=== PATIENT | female | born 1950 | race Caucasian/White ===

== ENCOUNTER 2021-07-28 07:35 | Emergency (ER) | payer MEDICARE ==
[2021-07-28] MEDS ORDERED: LOPRESSOR 5 MG/5 ML INJECTION IV ONE ×2 (07:58→08:04)
--- NOTE | 2021-07-28 07:58 | ERPHSYRPT ---
- History of Present Illness Time Seen by Provider: 07/28/21 07:54 Source: patient Exam Limitations: no limitations Physician History: This is a 71-year-old white female patient seen by nurse practitioner Cynthia Stanford within the last week. Patient had a complaint of 2 to 3 weeks of intermittent low back pain. Patient has some chronic back pain issues. Patient was placed on lisinopril by Cynthia Stanford. Patient's back pain issue was not addressed at that time. Patient has a history of hypertension, [id number] diabetes and elevated cholesterol. She presents emergency department today with a complaint of back pain. However, the patient was found to be tachycardic and had a systolic blood pressure of over 200 mmHg. She has no chest pain she is not short of breath. She has no known history of coronary artery disease Timing/Duration: intermittent Severity: mild (To moderate back pain) Associated Symptoms: No shortness of breath, No chest pain Allergies/Adverse Reactions: No Known Drug Allergies Allergy (Verified 07/28/21 07:42) Home Medications: Atorvastatin Calcium 1 tab PO DAILY 07/28/21 [History] Lisinopril 20 mg [Zestril 20 MG] 1 tab PO DAILY 07/28/21 [History] Metformin HCl 500 mg [Glucophage 500 MG] 1 tab PO BID 07/28/21 [History] Hx Tetanus, Diphtheria Vaccination/Date Given: No Hx Influenza Vaccination/Date Given: No Hx Pneumococcal Vaccination/Date Given: No Travel Risk - International Travel Have you traveled outside of the country in past 3 weeks: No - Coronavirus Screening Are you exhibiting any of the following symptoms?: No Close contact with a COVID-19 positive Pt in past 14-21 Days: No - Review of Systems Constitutional: No Symptoms Eyes: No Symptoms Ears, Nose, & Throat: No Symptoms Respiratory: No Symptoms Cardiac: No Symptoms Abdominal/Gastrointestinal: No Symptoms Genitourinary Symptoms: No Symptoms Musculoskeletal: Back Pain Skin: No Symptoms Neurological: No Symptoms Psychological: No Symptoms Endocrine: No Symptoms Hematologic/Lymphatic: No Symptoms Immunological/Allergic: No Symptoms All Other Systems: Reviewed and Negative - Past Medical History Pertinent Past Medical History: Yes Neurological History: No Pertinent History ENT History: No Pertinent History Cardiac History: Hypertension Respiratory History: No Pertinent History Endocrine Medical History: No Pertinent History Musculoskeletal History: No Pertinent History GI Medical History: No Pertinent History History: No Pertinent History Psycho-Social History: No Pertinent History Female Reproductive Disorders: No Pertinent History - Past Surgical History Past Surgical History: No Neuro Surgical History: No Pertinent History Cardiac: No Pertinent History Respiratory: No Pertinent History Gastrointestinal: No Pertinent History Genitourinary: No Pertinent History Musculoskeletal: No Pertinent History Female Surgical History: No Pertinent History - Social History Smoking Status: Never smoker Exposure to second hand smoke: No Drug Use: none Patient Lives Alone: Yes - Nursing Vital Signs Nursing Vital Signs: Initial Vital Signs Temperature 97.3 F 07/28/21 07:50 Pulse Rate 116 H 07/28/21 07:50 Respiratory Rate 18 07/28/21 07:50 Blood Pressure 214/126 07/28/21 07:50 O2 Sat by Pulse Oximetry 97 07/28/21 07:50 Pain Scale Pain Intensity [Upper 5 Posterior Back] Pain Intensity 0 - Physical Exam General Appearance: no apparent distress, alert, anxiety Eye Exam: PERRL/EOMI, eyes nml inspection Ears, Nose, Throat Exam: normal ENT inspection, moist mucous membranes Neck Exam: normal inspection, non-tender, supple, full range of motion Respiratory Exam: normal breath sounds, lungs clear, airway intact, No chest tenderness, No respiratory distress Cardiovascular Exam: regular rate/rhythm, tachycardia Gastrointestinal/Abdomen Exam: soft, normal bowel sounds, No tenderness Rectal Exam: not done Back Exam: normal inspection, normal range of motion, No CVA tenderness, No vertebral tenderness Extremity Exam: normal inspection, normal range of motion, pelvis stable Neurologic Exam: alert, oriented x 3, cooperative, 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 There is no comparison EKG available) Ordered Tests: Active Orders 24 hr Category Date Time Status Parachute Panel Joiner STAT Care 07/28/21 07:59 Active EKG-ER Only STAT Care 07/28/21 07:58 Active IV Insertion STAT Care 07/28/21 07:58 Active Pulse Oximetry (ED) STAT Care 07/28/21 07:58 Active CHEST WITHOUT CONTRAST [CT] Stat Exams 07/28/21 08:57 Completed CBC W DIFF Stat Lab 07/28/21 08:19 Completed CMP Stat Lab 07/28/21 08:19 Completed D-DIMER QUANTITATIVE Stat Lab 07/28/21 08:19 Completed Lactic Acid Stat Lab 07/28/21 07:58 Completed MAGNESIUM Stat Lab 07/28/21 08:19 Completed NT PRO BNP Stat Lab 07/28/21 08:19 Completed TROPONIN Q3H Lab 07/28/21 08:19 Completed TROPONIN Q3H Lab 07/28/21 11:00 Ordered TROPONIN Q3H Lab 07/28/21 14:00 Ordered TROPONIN Q3H Lab 07/28/21 17:00 Ordered TROPONIN Q3H Lab 07/28/21 20:00 Ordered UA W/RFX UR CULTURE Stat Lab 07/28/21 07:58 Ordered Medication Summary Discontinued Medications Generic Name Dose Route Start Last Admin Trade Name Freq PRN Reason Stop Dose Admin Enalaprilat 1.25 mg 07/28/21 08:44 07/28/21 09:03 Enalaprilat 2.5 Mg Injection IV 07/28/21 08:45 1.25 mg STAT ONE Administration Enalaprilat Confirm 07/28/21 09:02 Enalaprilat 2.5 Mg Injection Administered 07/28/21 09:03 Dose 2.5 mg IV .STK-MED ONE Metoprolol Tartrate 5 mg 07/28/21 07:58 07/28/21 08:30 Metoprolol Tartrate 5 Mg/5 Ml Injection IV 07/28/21 07:59 5 mg STAT ONE Administration Metoprolol Tartrate Confirm 07/28/21 08:04 Metoprolol Tartrate 5 Mg/5 Ml Injection Administered 07/28/21 08:05 Dose 5 mg IV .STK-MED ONE Morphine Sulfate Confirm 07/28/21 08:04 Morphine Sulfate 4 Mg/Ml Injection Administered 07/28/21 08:05 Dose 4 mg .ROUTE .STK-MED ONE Morphine Sulfate 4 mg 07/28/21 08:12 07/28/21 08:14 Morphine Sulfate 4 Mg/Ml Injection IV 07/28/21 08:13 4 mg STAT ONE Administration Ondansetron HCl Confirm 07/28/21 08:04 Ondansetron Hcl 4 Mg/2 Ml Vial Administered 07/28/21 08:05 Dose 4 mg .ROUTE .STK-MED ONE Ondansetron HCl 4 mg 07/28/21 08:12 07/28/21 08:14 Ondansetron Hcl 4 Mg/2 Ml Vial IV 07/28/21 08:13 4 mg STAT ONE Administration Lab/Rad Data: Laboratory Result Diagrams 07/28/21 08:19 07/28/21 08:19 Laboratory Results 07/28/21 07/28/21 07/28/21 Range/Units 08:19 08:19 08:19 WBC (4.0-10.5) K/mm3 RBC (4.1-5.4) M/mm3 Hgb (12.0-16.0) gm/dl Hct (35-47) % MCV (78-100) fl MCH (26-32) pg MCHC (32-36) g/dl RDW (11.5-14.0) % Plt Count (150-450) K/mm3 MPV (7.5-11.0) fl Gran % (36.0-66.0) % Eos # (Auto) (0-0.5) Absolute Lymphs (auto) (1.0-4.6) Absolute Monos (auto) (0.0-1.3) Lymphocytes % (24.0-44.0) % Monocytes % (0.0-12.0) % Eosinophils % (0.00-5.0) % Basophils % (0.0-0.4) % Absolute Granulocytes (1.4-6.9) Basophils # (0-0.4) D-Dimer < 215 L (215-500) ng/mL Sodium 139 (137-145) mmol/L Potassium 3.8 (3.5-5.1) mmol/L Chloride 108 H (98-107) mmol/L Carbon Dioxide 18 L (22-30) mmol/L Anion Gap 17.2 H (5-15) MEQ/L BUN 10 (7-17) mg/dL Creatinine 0.84 (0.52-1.04) mg/dL Estimated GFR > 60.0 ML/MIN Glucose 259 H (74-106) mg/dL Lactic Acid (0.4-2.0) Calcium 9.2 (8.4-10.2) mg/dL Magnesium 1.7 (1.6-2.3) mg/dL Total Bilirubin 0.90 (0.2-1.3) mg/dL AST 25 (14-36) U/L ALT 18 (0-35) U/L Alkaline Phosphatase 99 (38-126) U/L Troponin I < 0.012 (0.000-0.034) ng/mL NT-Pro-B Natriuret Pep 60.6 (0-900) pg/mL Serum Total Protein 6.8 (6.3-8.2) g/dL Albumin 4.3 (3.5-5.0) g/dL 07/28/21 07/28/21 Range/Units 08:19 07:58 WBC 6.2 (4.0-10.5) K/mm3 RBC 4.91 (4.1-5.4) M/mm3 Hgb 14.8 (12.0-16.0) gm/dl Hct 42.9 (35-47) % MCV 87.4 (78-100) fl MCH 30.1 (26-32) pg MCHC 34.5 (32-36) g/dl RDW 13.0 (11.5-14.0) % Plt Count 226 (150-450) K/mm3 MPV 10.5 (7.5-11.0) fl Gran % 59.8 (36.0-66.0) % Eos # (Auto) 0.09 (0-0.5) Absolute Lymphs (auto) 1.99 (1.0-4.6) Absolute Monos (auto) 0.39 (0.0-1.3) Lymphocytes % 31.9 (24.0-44.0) % Monocytes % 6.3 (0.0-12.0) % Eosinophils % 1.4 (0.00-5.0) % Basophils % 0.6 (0.0-0.4) % Absolute Granulocytes 3.72 (1.4-6.9) Basophils # 0.04 (0-0.4) D-Dimer (215-500) ng/mL Sodium (137-145) mmol/L Potassium (3.5-5.1) mmol/L Chloride (98-107) mmol/L Carbon Dioxide (22-30) mmol/L Anion Gap (5-15) MEQ/L BUN (7-17) mg/dL Creatinine (0.52-1.04) mg/dL Estimated GFR ML/MIN Glucose (74-106) mg/dL Lactic Acid 1.1 (0.4-2.0) Calcium (8.4-10.2) mg/dL Magnesium (1.6-2.3) mg/dL Total Bilirubin (0.2-1.3) mg/dL AST (14-36) U/L ALT (0-35) U/L Alkaline Phosphatase (38-126) U/L Troponin I (0.000-0.034) ng/mL NT-Pro-B Natriuret Pep (0-900) pg/mL Serum Total Protein (6.3-8.2) g/dL Albumin (3.5-5.0) g/dL - Progress Progress: improved, pain not gone completely, re-examined Progress Note: 07/28/21 11:01 CT of the chest without contrast shows left upper hemithorax noncalcified pleural mass. The aorta is of normal course and caliber. The bony thorax is intact. There is mild degenerative changes in the spine. No evidence of any acute fracture or subluxation of the spine. Counseled pt/family regarding: lab results, diagnosis, need for follow-up, rad results - Departure Departure Disposition: Home Clinical Impression: Back pain, Hypertension, Pleural mass Condition: Stable Critical Care Time: No Referrals: SUDARSHAN ECHAVARRIA [Primary Care Provider] - Follow up/PCP as directed Additional Instructions: Call your primary provider today to make arranges for follow-up appointment to address the pleural mass that is present on the CAT scan. Continue your blood pressure medication as prescribed. Take your new medication as prescribed. Prescriptions: Hydrocodone/APAP 5/325 [[place] 5/325 mg] 1 each PO Q8H PRN PRN #6 tablet MDD 3 PRN Reason: Pain
[2021-07-28] MEDS ORDERED: Zofran 4 MG/2 ML VIAL ONE (08:04)
[2021-07-28] MEDS ORDERED: MORPHINE SULFATE 4 MG INJ ONE (08:04)
[2021-07-28] MEDS ORDERED: Zofran 4 MG/2 ML VIAL IV ONE (08:12)
[2021-07-28] MEDS ORDERED: MORPHINE SULFATE 4 MG INJ IV ONE (08:12)
[2021-07-28 08:31] LABS: Absolute Neutrophil Ct (ANC) 3.72 (1.4-6.9); Basophil (Absolute #) 0.04 (0-0.4); Eosinophil % 1.4 % (0.00-5.0); Eosinophil (Absolute #) 0.09 (0-0.5); Hematocrit 42.9 % (35-47); Hemoglobin 14.8 gm/dl (12.0-16.0); Lymphocyte (Absolute #) 1.99 (1.0-4.6); Lymphocytes % 31.9 % (24.0-44.0); Mean Cell Volume 87.4 fl (78-100); Mean Corpuscular Hemoglobin 30.1 pg (26-32); Mean Corpuscular Hgb Concent. 34.5 g/dl (32-36); Mean Platelet Volume 10.5 fl (7.5-11.0); Monocyte (Absolute #) 0.39 (0.0-1.3); Monocytes % 6.3 % (0.0-12.0); Neutrophil % 59.8 % (36.0-66.0); Platelet Count 226 K/mm3 (150-450); Red Blood Count 4.91 M/mm3 (4.1-5.4); White Blood Count 6.2 K/mm3 (4.0-10.5)
[2021-07-28 08:39] LABS: ALBUMIN 4.3 g/dL (3.5-5.0)
[2021-07-28 08:42] LABS: ALKALINE PHOSPHATASE 99 U/L (38-126)
[2021-07-28] MEDS ORDERED: ENALAPRILAT 2.5 MG INJECTION IV ONE ×4 (08:44→11:13)
[2021-07-28 08:45] LABS: ANION GAP 17.2 MEQ/L (5-15); BLOOD UREA NITROGEN 10 mg/dL (7-17); CHLORIDE 108 mmol/L (98-107); Calcium 9.2 mg/dL (8.4-10.2); Carbon Dioxide 18 mmol/L (22-30); Creatinine 1 0.84 mg/dL (0.52-1.04); EST GLOMERULAR FILTRATION RATE > 60.0 ML/MIN; Glucose 259 mg/dL (74-106); MAGNESIUM 1.7 mg/dL (1.6-2.3); NT PRO BNP 60.6 pg/mL (0-900); Potassium 3.8 mmol/L (3.5-5.1); SGOT/AST 25 U/L (14-36); SGPT/ALT 18 U/L (0-35); SODIUM 139 mmol/L (137-145); Total Protein 6.8 g/dL (6.3-8.2)
--- NOTE | 2021-07-28 10:08 | XRAY ---
Indication: Back pain. Hypertension and tachycardia. Multiple contiguous images obtained through the chest without contrast. Comparison: None Lungs are inflated without infiltrate, consolidation, or effusion. Minimal peripheral left upper and right lower lobe fibrosis/scarring. Anterior lateral left hemithorax demonstrates focal noncalcified pleural mass measuring at least 3.1 x 1.3 cm in greatest axial dimension. Hounsfield units average 32 favoring dense soft tissue mass and not lipoma. Adjacent 4/5 ribs are intact without osseous obstructive process or mass effect. Partial differential offered includes solitary fibrous tumor, mesothelioma, intercostal nerve schwannoma, pleural lymphoma, and metastatic pleural disease. Heart not enlarged. Aorta is normal in course and caliber with minimal arterial sclerotic calcifications. No pathologic mediastinal lymphadenopathy. Bony thorax intact with mild degenerative changes throughout the spine. No suspicious bony lesions. Limited upper abdomen including adrenal glands are unremarkable. Impression: 1. Left upper hemithorax noncalcified pleural mass as detailed. Partial differential offered above. 2. Minimal pulmonary fibrosis/scarring and mild degenerative spondylosis.
[2021-07-28 11:27] VITALS: O2SAT 98
[2021-07-28 11:43] VITALS: BP 181/103; PULSE 85
== END 2021-07-28 12:01 | disposition home or self-care (01) ==
LOC: ED 07:35
DX: R93.89 Abnormal findings on diagnostic imaging of other specified body structures (principal); I10 Essential (primary) hypertension; M54.50 Low back pain, unspecified; R00.0 Tachycardia, unspecified; E11.9 Type 2 diabetes mellitus without complications; E78.5 Hyperlipidemia, unspecified; Z79.84 Long term (current) use of oral hypoglycemic drugs; Z79.891 Long term (current) use of opiate analgesic; Z79.899 Other long term (current) drug therapy
CPT/HCPCS: 36000; 36415; 71250; 80053; 83605; 83735; 83880; 84484; 85025; 85379; 93005; 93041; 94760; 96374; 96375; 96376; 99284; J2270; J2405

== ENCOUNTER 2021-09-27 01:18 | Emergency (ER) | payer MEDICARE, OTHER ==
[2021-09-27] MEDS ORDERED: Zofran 4 MG/2 ML VIAL IV ONE (01:53)
[2021-09-27] MEDS ORDERED: MORPHINE SULFATE 4 MG INJ IV ONE (01:53)
[2021-09-27] MEDS ORDERED: TRANDATE 20 MG/4 ML SYRINGE IV ONE ×2 (01:55→02:00)
--- NOTE | 2021-09-27 01:58 | ERPHSYRPT ---
- History of Present Illness Time Seen by Provider: 09/27/21 01:34 Historian: patient Exam Limitations: no limitations Patient Subjective Stated Complaint: pt states she has been having chronic back pain for several months, it has gotten worse tonight so sister brought her to ER. Triage Nursing Assessment: pt states that she has been hurting in her low back for several months but it is worse today, pt is alert and oriented and cooperative. rates pain as 5/10 Physician History: 71-year-old female with history of hypertension, hyperlipidemia, diabetes mellitus, chronic back pain presented in the ER with chief complaint of increasing pain left upper quadrant/back moderate to severe sharp, nonradiating, aggravated with movements palpation and some burning/stinging sensation in the skin. No obvious trauma or fall. Patient is a blood pressure in the 230s on presentation in the ER with some tachycardia. Timing/Duration: week(s), gradual onset, worse Activities at Onset: rest Quality: sharpness Abdominal Pain Onset Location: LUQ, flank Pain Radiation: back Severity of Pain-Max: severe Severity of Pain-Current: severe Modifying Factors: Worsens With: movement, palpation, walking Associated Symptoms: back, No chest pain, No nausea, No shortness of breath, No vomiting Previous symptoms: same symptoms as today Allergies/Adverse Reactions: No Known Drug Allergies Allergy (Verified 07/28/21 07:42) Home Medications: Atorvastatin Calcium 1 tab PO DAILY 07/28/21 [History] Lisinopril 20 mg [Zestril 20 MG] 1 tab PO DAILY 07/28/21 [History] Metformin HCl 500 mg [Glucophage 500 MG] 1 tab PO BID 07/28/21 [History] Hx Tetanus, Diphtheria Vaccination/Date Given: No Hx Influenza Vaccination/Date Given: No Hx Pneumococcal Vaccination/Date Given: No Travel Risk - International Travel Have you traveled outside of the country in past 3 weeks: No - Coronavirus Screening Are you exhibiting any of the following symptoms?: No Close contact with a COVID-19 positive Pt in past 14-21 Days: No - Vaccine Status Have you recieved a Covid-19 vaccination: No - Review of Systems Constitutional: No Symptoms Eyes: No Symptoms Ears, Nose, & Throat: No Symptoms Respiratory: No Symptoms Cardiac: No Symptoms Abdominal/Gastrointestinal: Abdominal Pain Genitourinary Symptoms: No Symptoms Musculoskeletal: Back Pain Skin: No Symptoms Neurological: No Symptoms Psychological: No Symptoms Endocrine: No Symptoms Hematologic/Lymphatic: No Symptoms Immunological/Allergic: No Symptoms - Past Medical History Pertinent Past Medical History: Yes Neurological History: No Pertinent History ENT History: No Pertinent History Cardiac History: Hypertension Respiratory History: No Pertinent History Endocrine Medical History: No Pertinent History Musculoskeletal History: No Pertinent History GI Medical History: No Pertinent History History: No Pertinent History Psycho-Social History: No Pertinent History Female Reproductive Disorders: No Pertinent History - Past Surgical History Past Surgical History: No Neuro Surgical History: No Pertinent History Cardiac: No Pertinent History Respiratory: No Pertinent History Gastrointestinal: No Pertinent History Genitourinary: No Pertinent History Musculoskeletal: No Pertinent History Female Surgical History: No Pertinent History Other Surgical History: Left knee surgery - Social History Smoking Status: Never smoker Exposure to second hand smoke: No Drug Use: none Patient Lives Alone: Yes - Nursing Vital Signs Nursing Vital Signs: Initial Vital Signs Pulse Rate 119 H 09/27/21 01:43 Respiratory Rate 18 09/27/21 01:43 O2 Sat by Pulse Oximetry 97 09/27/21 01:43 Pain Scale Pain Intensity 2 - Physical Exam General Appearance: no apparent distress, alert Eye Exam: PERRL/EOMI Ears, Nose, Throat Exam: normal ENT inspection, TMs normal, pharynx normal Neck Exam: normal inspection, non-tender, supple, full range of motion Respiratory Exam: normal breath sounds, lungs clear Cardiovascular Exam: regular rate/rhythm, normal heart sounds Gastrointestinal/Abdomen Exam: soft, normal bowel sounds, tenderness (Left upper quadrant) Back Exam: normal inspection, normal range of motion Extremity Exam: normal inspection, normal range of motion Neurologic Exam: alert, oriented x 3, cooperative, 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 Skin Exam: normal color SpO2 Interpretation: normal SpO2: 97 O2 Delivery: Room Air - Course EKG Interpreted by Me: RATE ([id number]), Sinus Rhythm, NORMAL AXIS, NORMAL INTERVALS, Q-wave Ordered Tests: Active Orders 24 hr Category Date Time Status EKG-ER Only STAT Care 09/27/21 01:53 Active IV Insertion STAT Care 09/27/21 01:53 Active ABDOMEN AND PELVIS W CONTRAST [CT] Stat Exams 09/27/21 01:53 Taken CBC W DIFF Stat Lab 09/27/21 02:11 Completed CMP Stat Lab 09/27/21 02:11 Completed LIPASE Stat Lab 09/27/21 02:11 Completed Lactic Acid Stat Lab 09/27/21 02:10 Completed NT PRO BNP Routine Lab 09/27/21 02:11 Completed TROPONIN Q3H Lab 09/27/21 02:11 Completed TROPONIN Q3H Lab 09/27/21 04:57 Received TROPONIN Q3H Lab 09/27/21 08:00 Ordered TROPONIN Q3H Lab 09/27/21 11:00 Ordered TROPONIN Q3H Lab 09/27/21 14:00 Ordered UA W/RFX CULTURE Stat Lab 09/27/21 03:46 Completed Medication Summary Discontinued Medications Generic Name Dose Route Start Last Admin Trade Name Freq PRN Reason Stop Dose Admin Hydralazine HCl 10 mg 09/27/21 03:32 09/27/21 03:35 Hydralazine Hcl 20 Mg/Ml Vial IV 09/27/21 03:33 10 mg STAT ONE Administration Hydralazine HCl Confirm 09/27/21 03:34 Hydralazine Hcl 20 Mg/Ml Vial Administered 09/27/21 03:35 Dose 20 mg .ROUTE .STK-MED ONE Labetalol HCl 10 mg 09/27/21 01:55 09/27/21 02:02 Labetalol Hcl 20 Mg/4 Ml Disp.Syringe IV 09/27/21 01:56 10 mg STAT ONE Administration Labetalol HCl Confirm 09/27/21 02:00 Labetalol Hcl 20 Mg/4 Ml Disp.Syringe Administered 09/27/21 02:01 Dose 20 mg IV .STK-MED ONE Morphine Sulfate 4 mg 09/27/21 01:53 09/27/21 02:02 Morphine Sulfate 4 Mg/Ml Injection IV 09/27/21 01:54 4 mg STAT ONE Administration Morphine Sulfate Confirm 09/27/21 02:00 Morphine Sulfate 4 Mg/Ml Injection Administered 09/27/21 02:01 Dose 4 mg .ROUTE .STK-MED ONE Ondansetron HCl 4 mg 09/27/21 01:53 09/27/21 02:02 Ondansetron Hcl 4 Mg/2 Ml Vial IV 09/27/21 01:54 4 mg STAT ONE Administration Ondansetron HCl Confirm 09/27/21 01:59 Ondansetron Hcl 4 Mg/2 Ml Vial Administered 09/27/21 02:00 Dose 4 mg .ROUTE .STK-MED ONE Lab/Rad Data: Laboratory Result Diagrams 09/27/21 02:11 09/27/21 02:11 Laboratory Results 09/27/21 09/27/21 09/27/21 Range/Units 03:46 02:11 02:11 WBC (4.0-10.5) x10^3/uL RBC (4.1-5.4) x10^6/uL Hgb (12.0-16.0) g/dL Hct (35-47) % MCV (78-100) fL MCH (26-32) pg MCHC (32-36) g/dL RDW (11.5-14.0) % Plt Count (150-450) x10^3/uL MPV (7.5-11.0) fL Gran % (36.0-66.0) % Immature Gran % (Auto) (0.00-0.4) % Nucleat RBC Rel Count (0.00-0.1) % Eos # (Auto) (0-0.5) x10^3/uL Immature Gran # (Auto) (0.00-0.03) x10^3u/L Absolute Lymphs (auto) (1.0-4.6) x10^3/uL Absolute Monos (auto) (0.0-1.3) x10^3/uL Absolute Nucleated RBC (0.00-0.01) x10^3u/L Lymphocytes % (24.0-44.0) % Monocytes % (0.0-12.0) % Eosinophils % (0.00-5.0) % Basophils % (0.0-0.4) % Absolute Granulocytes (1.4-6.9) x10^3/uL Basophils # (0-0.4) x10^3/uL Sodium 141 (137-145) mmol/L Potassium 3.2 L (3.5-5.1) mmol/L Chloride 108 H (98-107) mmol/L Carbon Dioxide 25 (22-30) mmol/L Anion Gap 11.9 (5-15) MEQ/L BUN 8 (7-17) mg/dL Creatinine 0.93 (0.52-1.04) mg/dL Estimated GFR > 60.0 ML/MIN Glucose 160 H (74-106) mg/dL Lactic Acid (0.4-2.0) Calcium 9.5 (8.4-10.2) mg/dL Total Bilirubin 1.00 (0.2-1.3) mg/dL AST 22 (14-36) U/L ALT 15 (0-35) U/L Alkaline Phosphatase 93 (38-126) U/L Troponin I < 0.012 (0.000-0.034) ng/mL NT-Pro-B Natriuret Pep 259 (0-900) pg/mL Serum Total Protein 6.4 (6.3-8.2) g/dL Albumin 4.1 (3.5-5.0) g/dL Lipase 59 (23-300) U/L Urinalys Dipstick Clnc MAIN LAB Urine Color YELLOW (YELLOW) Urine Appearance CLEAR (CLEAR) Urine pH 6.5 (5-6) Ur Specific [place] <=1.005 (1.005-1.025) POC Urine Protein Conf NEGATIVE (Negative) Urine Ketones NEGATIVE (NEGATIVE) Urine Nitrite NEGATIVE (NEGATIVE) Urine Bilirubin NEGATIVE (NEGATIVE) Urine Urobilinogen 0.2 (0-1) mg/dL Urine Leukocytes NEGATIVE (NEGATIVE) Urine WBC (Auto) 3-5 (0-5) /HPF Urine RBC (Auto) NONE (0-2) /HPF U Epithel Cells (Auto) RARE (FEW) /HPF Urine Bacteria (Auto) NONE SEEN (NEGATIVE) /HPF Urine RBC NEGATIVE (0-5) Jon/ul Ur Culture Indicated? NO Urine Glucose NEGATIVE (NEGATIVE) mg/dL 09/27/21 09/27/21 Range/Units 02:11 02:10 WBC 6.7 (4.0-10.5) x10^3/uL RBC 4.46 (4.1-5.4) x10^6/uL Hgb 13.3 (12.0-16.0) g/dL Hct 39.4 (35-47) % MCV 88.3 (78-100) fL MCH 29.8 (26-32) pg MCHC 33.8 (32-36) g/dL RDW 13.2 (11.5-14.0) % Plt Count 252 (150-450) x10^3/uL MPV 9.7 (7.5-11.0) fL Gran % 52.7 (36.0-66.0) % Immature Gran % (Auto) 0.3 (0.00-0.4) % Nucleat RBC Rel Count 0.0 (0.00-0.1) % Eos # (Auto) 0.09 (0-0.5) x10^3/uL Immature Gran # (Auto) 0.02 (0.00-0.03) x10^3u/L Absolute Lymphs (auto) 2.55 (1.0-4.6) x10^3/uL Absolute Monos (auto) 0.46 (0.0-1.3) x10^3/uL Absolute Nucleated RBC 0.00 (0.00-0.01) x10^3u/L Lymphocytes % 38.1 (24.0-44.0) % Monocytes % 6.9 (0.0-12.0) % Eosinophils % 1.3 (0.00-5.0) % Basophils % 0.7 (0.0-0.4) % Absolute Granulocytes 3.53 (1.4-6.9) x10^3/uL Basophils # 0.05 (0-0.4) x10^3/uL Sodium (137-145) mmol/L Potassium (3.5-5.1) mmol/L Chloride (98-107) mmol/L Carbon Dioxide (22-30) mmol/L Anion Gap (5-15) MEQ/L BUN (7-17) mg/dL Creatinine (0.52-1.04) mg/dL Estimated GFR ML/MIN Glucose (74-106) mg/dL Lactic Acid 1.0 (0.4-2.0) Calcium (8.4-10.2) mg/dL Total Bilirubin (0.2-1.3) mg/dL AST (14-36) U/L ALT (0-35) U/L Alkaline Phosphatase (38-126) U/L Troponin I (0.000-0.034) ng/mL NT-Pro-B Natriuret Pep (0-900) pg/mL Serum Total Protein (6.3-8.2) g/dL Albumin (3.5-5.0) g/dL Lipase (23-300) U/L Urinalys Dipstick Clnc Urine Color (YELLOW) Urine Appearance (CLEAR) Urine pH (5-6) Ur Specific [place] (1.005-1.025) POC Urine Protein Conf (Negative) Urine Ketones (NEGATIVE) Urine Nitrite (NEGATIVE) Urine Bilirubin (NEGATIVE) Urine Urobilinogen (0-1) mg/dL Urine Leukocytes (NEGATIVE) Urine WBC (Auto) (0-5) /HPF Urine RBC (Auto) (0-2) /HPF U Epithel Cells (Auto) (FEW) /HPF Urine Bacteria (Auto) (NEGATIVE) /HPF Urine RBC (0-5) Jon/ul Ur Culture Indicated? Urine Glucose (NEGATIVE) mg/dL - Progress Progress: improved Progress Note: 09/27/21 05:48 71-year-old is evaluated for left upper abdominal pain. Patient was found to be very hypertensive, given labetalol 10 mg IV x2 and it improved to 170s which according to patient is her usual blood pressure. She denies any headache chest pain, nonfocal neuro exam throughout stay in the ER. Has normal white count, mildly low potassium for which she is given replacement but unremarkable chemistry catherine. No UTI. I have obtained CT abdomen pelvis with contrast which is negative for aortic aneurysm and any other acute intra-abdominal findings. I believe her pain is musculoskeletal and recommended outpatient primary care follow-up and recommended symptomatic treatment for pain.. She has a nonfocal neuro exam lower extremities. Discussed signs symptoms of worsening needing return to ER which she seems understanding. Stable for discharge. 09/27/21 05:52 Counseled pt/family regarding: lab results, diagnosis, need for follow-up, rad results - Departure Departure Disposition: Home Clinical Impression: Uncontrolled hypertension, Left sided abdominal pain, Back pain, Hypokalemia Condition: Stable Critical Care Time: No Referrals: KRISHNA GARCIA NP [Primary Care Provider] - Follow up/PCP as directed (1-2 days for reevaluation) Instructions: Malignant Hypertension (DC), Back Muscle Strain (DC) Additional Instructions: Monitor your blood pressure regularly, keep a log and follow-up with primary care for reevaluation as you probably need adjustment and blood pressure medicat ions. Return to ER for intractable back pain, numbness tingling weakness of lower EXTR or if having uncontrolled hypertension with chest pain, abdominal pain, shortness of breath, headache, visual disturbance or any other focal weakness etc.
[2021-09-27] MEDS ORDERED: Zofran 4 MG/2 ML VIAL ONE (01:59)
[2021-09-27] MEDS ORDERED: MORPHINE SULFATE 4 MG INJ ONE (02:00)
[2021-09-27 02:13] LABS: Absolute Neutrophil Ct (ANC) 3.53 x10^3/uL (1.4-6.9); Basophil (Absolute #) 0.05 x10^3/uL (0-0.4); Eosinophil % 1.3 % (0.00-5.0); Eosinophil (Absolute #) 0.09 x10^3/uL (0-0.5); Hematocrit 39.4 % (35-47); Hemoglobin 13.3 g/dL (12.0-16.0); Lymphocyte (Absolute #) 2.55 x10^3/uL (1.0-4.6); Lymphocytes % 38.1 % (24.0-44.0); Mean Cell Volume 88.3 fL (78-100); Mean Corpuscular Hemoglobin 29.8 pg (26-32); Mean Corpuscular Hgb Concent. 33.8 g/dL (32-36); Mean Platelet Volume 9.7 fL (7.5-11.0); Monocyte (Absolute #) 0.46 x10^3/uL (0.0-1.3); Monocytes % 6.9 % (0.0-12.0); Neutrophil % 52.7 % (36.0-66.0); Platelet Count 252 x10^3/uL (150-450); Red Blood Count 4.46 x10^6/uL (4.1-5.4); Red Cell Distribution Width 13.2 % (11.5-14.0); White Blood Count 6.7 x10^3/uL (4.0-10.5)
[2021-09-27 02:35] LABS: Glucose 160 mg/dL (74-106)
[2021-09-27 02:36] LABS: ALBUMIN 4.1 g/dL (3.5-5.0); ALKALINE PHOSPHATASE 93 U/L (38-126); ANION GAP 11.9 MEQ/L (5-15); BLOOD UREA NITROGEN 8 mg/dL (7-17); CHLORIDE 108 mmol/L (98-107); Calcium 9.5 mg/dL (8.4-10.2); Carbon Dioxide 25 mmol/L (22-30); Creatinine 1 0.93 mg/dL (0.52-1.04); EST GLOMERULAR FILTRATION RATE > 60.0 ML/MIN; LIPASE 59 U/L (23-300); Potassium 3.2 mmol/L (3.5-5.1); SGOT/AST 22 U/L (14-36); SGPT/ALT 15 U/L (0-35); SODIUM 141 mmol/L (137-145); Total Protein 6.4 g/dL (6.3-8.2)
[2021-09-27 02:47] LABS: NT PRO BNP 259 pg/mL (0-900); TROPONIN < 0.012 ng/mL (0.000-0.034)
[2021-09-27] MEDS ORDERED: APRESOLINE 20 MG/ML INJ IV ONE (03:32)
[2021-09-27] MEDS ORDERED: APRESOLINE 20 MG/ML INJ ONE (03:34)
[2021-09-27 03:56] LABS: Appearance CLEAR (CLEAR); Bilirubin NEGATIVE (NEGATIVE); Epithelial Cells RARE /HPF (FEW); Glucose NEGATIVE (NEGATIVE); Ketones NEGATIVE (NEGATIVE)
[2021-09-27 03:57] LABS: Bacteria NONE SEEN /HPF (NEGATIVE); Dipstick done @ ? MAIN LAB; Nitrite NEGATIVE (NEGATIVE); Ph 6.5 (5-6); Protein,Urine Dip NEGATIVE (Negative); RBC NEGATIVE Ery/ul (0-5); Specific Gravity <=1.005 (1.005-1.025); Urine Cultured Indicated? NO; Urobilinogen 0.2 mg/dL (0-1)
[2021-09-27 05:25] VITALS: BP 173/101; PULSE 103
[2021-09-27] MEDS ORDERED: Klor Con PO ONE ×2 (05:47→05:50)
[2021-09-27 05:54] VITALS: O2SAT 97
--- NOTE | 2021-09-27 09:01 | XRAY ---
Indication: Left back and left rib pain. AAA. Multiple contiguous axial images obtained through the abdomen and pelvis using 80 cc Isovue 370 contrast. Comparison: None Lung bases demonstrates partially visualized left upper lobe noncalcified pleural-based mass grossly similar in appearance to CT chest July 28, 2021 exam. Mild bilateral dependent atelectasis. No infiltrate or effusion. Heart not enlarged. Small hiatal hernia. Noncontrasted stomach and bowel loops appear nonobstructed with normal appendix. No free fluid/air. Heterogeneous lobular uterus favoring leiomyomatosis. Both kidneys enhance and excrete with small bilateral renal cysts, left midpole measuring 1.2 cm. Remaining liver, gallbladder, pancreas, spleen, adrenal glands, kidneys, ureters, and bladder are unremarkable. Minimal aortic calcifications without AAA or pathologic retroperitoneal lymphadenopathy. Mesenteric root demonstrates incidental 1.5 cm calcified node. Osseous structures intact with mild osteopenia and minimal/mild degenerative changes throughout the spine. Impression: 1. 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 2. Partially visualized left upper lobe pleural-based mass detailed on CT chest July 28, 2021. 3. Incidental small hiatal hernia, uterine leiomyomatosis, bilateral renal cysts, mesenteric root calcified lymph node, and chronic bony findings. Comment: Preliminary interpretation made by [facility] who reports hepatic hypodense lesion. Sagittal/coronal reformatted images demonstrates this to be contiguous with the biliary tree and represents normal confluence.
== END 2021-09-27 06:01 | disposition home or self-care (01) ==
LOC: ED 01:18
DX: I10 Essential (primary) hypertension (principal); E87.6 Hypokalemia; M54.50 Low back pain, unspecified; R10.12 Left upper quadrant pain; R10.32 Left lower quadrant pain; R00.0 Tachycardia, unspecified; E78.5 Hyperlipidemia, unspecified; E11.9 Type 2 diabetes mellitus without complications; Z79.84 Long term (current) use of oral hypoglycemic drugs; Z79.899 Other long term (current) drug therapy; Z28.310 Unvaccinated for COVID-19
CPT/HCPCS: 36000; 36415; 74177; 80053; 81015; 83605; 83690; 83880; 84484; 85025; 93005; 96374; 96375; 99284; J0360; J2270; J2405; A9270-GY

== ENCOUNTER 2021-12-31 02:09 | Emergency (ER) | payer MEDICARE, SELFPAY ==
[2021-12-31] MEDS ORDERED: TORAdol 30 mg Injection IM ONE (02:55)
[2021-12-31] MEDS ORDERED: TYLENOL 325 MG ONE (02:59)
[2021-12-31] MEDS ORDERED: TORAdol 30 mg Injection ONE (02:59)
[2021-12-31] MEDS: TYLENOL 325 MG PO ONE ×2 (03:00→03:05)
--- NOTE | 2021-12-31 04:33 | ERPHSYRPT ---
- History of Present Illness Time Seen by Provider: 12/31/21 02:20 Source: patient Exam Limitations: no limitations Patient Subjective Stated Complaint: pt states "I keep having this pain in my back. I have had a x-ray, CT of my back, and a CT of my abdomen, they say its a rthritis. This is more than arthritis." Triage Nursing Assessment: pt ambulated into the er; pt is axo x4; c/o back pain; pt states 10/10 pain to back; pt states that pain starts in rt shoulder and radiates to left ribs; hypertensive Physician History: Patient's a 71-year-old female presents to our ED with acute on chronic back pain. Patient has been experiencing right upper back pain for the past several months. Pain has been getting progressively worse. Patient states the pain was severe earlier this morning she could not sleep. Patient was in our ED back in July and in September for the same. A CAT scan performed at that time revealed a lung mass. Patient has not received any follow-up regarding this mass. It is unclear if this mass is associated with our patient's current pain. No trauma. No fever. No shortness of breath. No nausea vomiting or diaphoresis. No significant weight loss. Patient's back pain is rated 10 out of 10. Patient's sister at bedside. They voiced no other complaints or concerns at this time. Timing/Duration: other (5 months progressively worsening) Severity: moderate Modifying Factors: Improves With: nothing Associated Symptoms: denies symptoms Allergies/Adverse Reactions: No Known Drug Allergies Allergy (Verified 07/28/21 07:42) Home Medications: Atorvastatin Calcium 1 tab PO HS 07/28/21 [History] Lisinopril 20 mg [Zestril 20 MG] 1 tab PO BID 07/28/21 [History] Losartan Potassium 50 mg [Cozaar 50 MG] 50 mg PO DAILY 12/31/21 [History] Naproxen 500 mg [Naprosyn 500 MG] 500 mg PO BID 12/31/21 [History] Pioglitazone 30 mg [Actos 30 MG] 30 mg PO DAILY 12/31/21 [History] Hx Tetanus, Diphtheria Vaccination/Date Given: No Hx Influenza Vaccination/Date Given: No Hx Pneumococcal Vaccination/Date Given: No Travel Risk - International Travel Have you traveled outside of the country in past 3 weeks: No - Coronavirus Screening Are you exhibiting any of the following symptoms?: No Close contact with a COVID-19 positive Pt in past 14-21 Days: No - Vaccine Status Have you recieved a Covid-19 vaccination: No - Review of Systems Constitutional: No Symptoms, No Fever, No Chills Eyes: No Symptoms Ears, Nose, & Throat: No Symptoms Respiratory: No Symptoms, No Cough, No Dyspnea Cardiac: No Symptoms, No Chest Pain, No Edema, No Syncope Abdominal/Gastrointestinal: No Symptoms, No Abdominal Pain, No Nausea, No Vomiting, No Diarrhea Genitourinary Symptoms: No Symptoms, No Dysuria Musculoskeletal: No Symptoms, No Back Pain, No Neck Pain Skin: No Symptoms, No Rash Neurological: No Symptoms, No Dizziness, No Focal Weakness, No Sensory Changes Psychological: No Symptoms Endocrine: No Symptoms Hematologic/Lymphatic: No Symptoms Immunological/Allergic: No Symptoms All Other Systems: Reviewed and Negative - Past Medical History Pertinent Past Medical History: Yes Neurological History: No Pertinent History ENT History: No Pertinent History Cardiac History: Hypertension Respiratory History: No Pertinent History Endocrine Medical History: No Pertinent History Musculoskeletal History: No Pertinent History GI Medical History: No Pertinent History History: No Pertinent History Psycho-Social History: No Pertinent History Female Reproductive Disorders: No Pertinent History - Past Surgical History Past Surgical History: Yes Neuro Surgical History: No Pertinent History Cardiac: No Pertinent History Respiratory: No Pertinent History Gastrointestinal: No Pertinent History Genitourinary: No Pertinent History Musculoskeletal: Orthopedic Surgery Female Surgical History: No Pertinent History Other Surgical History: Left knee surgery - Social History Smoking Status: Never smoker Exposure to second hand smoke: No Drug Use: none Patient Lives Alone: Yes - Nursing Vital Signs Nursing Vital Signs: Initial Vital Signs Temperature 97.8 F 12/31/21 02:17 Pulse Rate 117 H 12/31/21 02:17 Respiratory Rate 20 12/31/21 02:17 Blood Pressure 226/134 12/31/21 02:17 O2 Sat by Pulse Oximetry 100 12/31/21 02:17 Pain Scale Pain Intensity [Back] 10 Pain Intensity 8 - Physical Exam General Appearance: no apparent distress, alert Eye Exam: PERRL/EOMI, eyes nml inspection Ears, Nose, Throat Exam: normal ENT inspection, TMs normal, pharynx normal, moist mucous membranes Neck Exam: normal inspection, non-tender, supple, full range of motion Respiratory Exam: normal breath sounds, lungs clear, airway intact, No respiratory distress Cardiovascular Exam: regular rate/rhythm, normal heart sounds, normal peripheral pulses Gastrointestinal/Abdomen Exam: soft, normal bowel sounds, No tenderness, No mass Back Exam: normal inspection, normal range of motion, No CVA tenderness, No vertebral tenderness Extremity Exam: normal inspection, normal range of motion, pelvis stable, other (Pain right upper shoulder appears to be deep to the scapula. Pain tends to radiate down and laterally towards her left side. No signs of trauma. Overlying soft tissue intact.) Neurologic Exam: alert, oriented x 3, cooperative, normal mood/affect, nml cerebellar function, nml station & gait, sensation nml, No motor deficits Skin Exam: normal color, warm, dry, No rash Lymphatic Exam: No adenopathy SpO2 Interpretation: normal SpO2: 99 O2 Delivery: Room Air - Course Nursing assessment & vital signs reviewed: Yes - CT Exams Chest CT Interpretation: Tele-radiologist Report (Left pleural-based homogenous soft tissue mass markedly increased in size since last exam in July. Current measurement shows 66 mm. Small hiatal hernia, 11.5 cm posterior left pleural simple fluid density cyst) Ordered Tests: Active Orders 24 hr Category Date Time Status CHEST WITHOUT CONTRAST [CT] Stat Exams 12/31/21 03:09 Taken Medication Summary Discontinued Medications Generic Name Dose Route Start Last Admin Trade Name Freq PRN Reason Stop Dose Admin Acetaminophen 975 mg 12/31/21 02:56 12/31/21 03:05 Acetaminophen 325 Mg Tablet PO 12/31/21 02:57 Not Given STAT ONE Acetaminophen Confirm 12/31/21 02:59 Acetaminophen 325 Mg Tablet Administered 12/31/21 03:00 Dose 975 mg .ROUTE .STK-MED ONE Ketorolac Tromethamine 30 mg 12/31/21 02:55 12/31/21 03:00 Ketorolac Tromethamine 30 Mg/Ml Inj IM 12/31/21 02:56 30 mg STAT ONE Administration Ketorolac Tromethamine Confirm 12/31/21 02:59 Ketorolac Tromethamine 30 Mg/Ml Inj Administered 12/31/21 03:00 Dose 30 mg .ROUTE .STK-MED ONE - Progress Progress: improved Progress Note: 71-year-old female presents to our ED with complaints of back pain. Patient has been experiencing this back pain for approximately 4 to 5 months. Patient had a CT chest without contrast back in July of this year. CAT scan at that time showed a 3 x 1 cm noncalcified left pleural mass. Patient followed up with Cynthia Stanford. Cynthia Stanford advised to further work-up including a biopsy. Patient refused further work-up and decided not to follow-up with anyone regarding this mass. Patient presents to our ED today with complaints of worsening back pain. Repeat CAT scan reveals said mass has increased in size. This is presumed the likely cause of patient's progressively worsening back pain. Patient is aware of the mass and the fact that it has increased in size. Patient now agrees to follow-up regarding further work-up/biopsy of this mass. I spoke to Dr. Elena our on-call physician regarding this case. He advised to discharge patient home and to have her follow-up with Cynthia Stanford so that she can arrange outpatient follow-up for further evaluation of this mass. Patient agrees to call Cynthia Stanford's office today/this morning to establish follow-up. Patient's sister is at bedside and states she will ensure that patient follows up with Cynthia Stanford today. We will discharge patient home. Patient received Toradol and acetaminophen for pain control. Patient significant relief. We will discharge patient home with a prescription for Toradol. Family/patient voiced no other complaints or concerns at this time. Portions of this note were created with voice recognition technology. There may be grammatical, spelling, punctuation or sound alike errors 12/31/21 05:54 Discussed with : Caden Will see patient in: office Counseled pt/family regarding: diagnosis, need for follow-up, rad results - Departure Departure Disposition: Home Clinical Impression: Pleural mass, Back pain, Left pleural simple cyst, Hiatal hernia Condition: Stable Critical Care Time: No Referrals: KRISHNA STANFORD NP [Primary Care Provider] - Follow up/PCP as directed Additional Instructions: Discharge/Care Plan NIESHA GUADALUPE was seen on 12/31/21 in the Emergency Room. The patient was counseled regarding Diagnosis,Lab results, Imaging studies, need for follow up and when to return to the Emergency Room. Prescriptions given: Discharge Note I have spoken with the patient and/or caregivers. I have explained the patient's condition, diagnosis and treatment plan based on the information available to me at this time. I have answered the patient's and/or caregiver's questions and addressed any concerns. The patient and/or caregivers have as good understanding of the patient's diagnosis, condition and treatment plan as can be expected at this point. The vital signs have been stable. The patient's condition is stable and appropriate for discharge from the emergency department. The patient will pursue further outpatient evaluation with the primary care physician or other designated or consulting physician as outlined in the discharge instructions. The patient and/or caregivers are agreeable to this plan of care and follow-up instructions have been explained in detail. The patient and/or caregivers have received these instruction. The patient/and or caregivers are aware that any significant change in condition or worsening of symptoms should prompt an immediate return to this or the closest emergency department or call 911.
[2021-12-31 05:58] VITALS: BP 178/106; PULSE 98
[2021-12-31 06:00] VITALS: O2SAT 99
--- NOTE | 2021-12-31 08:52 | XRAY ---
Indication: Upper back pain. Multiple contiguous axial images obtained through the chest without contrast as ordered. Comparison: July 28, 2021 Lungs demonstrates enlarging left upper lobe noncalcified pleural based mass now measuring 6.6 x 3.2 x 3.7 cm. Again no chest wall invasion or osseous destructive process. Differential unchanged again offered for solitary fibrous tumor, mesothelioma, intercostal nerve schwannoma, pleural lymphoma, and metastatic pleural disease. Again minimal scattered pulmonary fibrosis/scarring. No new pulmonary mass, infiltrate, effusion, or pneumothorax. Heart is not enlarged. Aorta is normal in course and caliber. No pathologic mediastinal lymphadenopathy. New small hiatal hernia. Bony thorax intact again with mild degenerative changes throughout the spine. No suspicious bony lesions. Limited upper abdomen demonstrates new 1 cm left mid renal cyst not previously included in the [id number].. Impression: 1. Interval enlarging left pleural mass. Partial differential offered above and unchanged. 2. New small hiatal hernia and small left renal cyst. Comment: Preliminary interpretation made by [facility]. No critical discrepancy.
== END 2021-12-31 06:10 | disposition home or self-care (01) ==
LOC: ED 02:09
DX: J94.8 Other specified pleural conditions (principal); M54.6 Pain in thoracic spine; K44.9 Diaphragmatic hernia without obstruction or gangrene; I10 Essential (primary) hypertension; Z79.899 Other long term (current) drug therapy; Z28.310 Unvaccinated for COVID-19
CPT/HCPCS: 71250; 96372; 99283; J1885; A9270-GY

== ENCOUNTER 2022-05-16 07:42 | Emergency (ER) | payer MEDICARE, SELFPAY ==
--- NOTE | 2022-05-16 08:22 | ERPHSYRPT ---
- History of Present Illness Source: patient, other (Sister) Exam Limitations: other (Very poor historian) Patient Subjective Stated Complaint: Right sided back/rib pain Triage Nursing Assessment: Patient ambulated back to ED via cane. Patient A+O x3. Patient's skin pink, warm and dry. Patient complains of right sided back/rib pain for one week that goes underneath right breast 12/25. Patient denies recent injury and trauma. Physician History: 72 yo wf w R posterior thoracic pain x 1 week. Pain is described as "shooting", and nothing makes it better or worse. Pain radiates to R infra-breast area, and it is rated a 10 on scale. She denies cough/dyspnea/N/V/abdominal pain/fever/dysuria/hematuria/melena/heamtochezia. Timing/Duration: other (1week) Method of Injury: unknown Quality: other ("shooting") Severity of Pain-Max: severe Severity of Pain-Current: severe Modifying Factors: Improves With: nothing Associated Symptoms: No fever, No chills, No sweating, No urinary incontinence, No loss of bowel control, No constipation, No nausea, No vomiting, No problems urinating, No light-headedness, No dizziness, No numbness in legs/feet, No weakness, No sensory/motor loss, No tingling in legs/feet, No lower back pain, No muscle spasms Previous symptoms: no prior history Allergies/Adverse Reactions: No Known Drug Allergies Allergy (Verified 05/16/22 08:16) Home Medications: Atorvastatin Calcium 1 tab PO HS 07/28/21 [History] Lisinopril 20 mg [Zestril 20 MG] 1 tab PO BID 07/28/21 [History] Losartan Potassium 50 mg [Cozaar 50 MG] 50 mg PO DAILY 12/31/21 [History] Naproxen 500 mg [Naprosyn 500 MG] 500 mg PO BID 12/31/21 [History] Pioglitazone 30 mg [Actos 30 MG] 30 mg PO DAILY 12/31/21 [History] Hx Tetanus, Diphtheria Vaccination/Date Given: No Hx Influenza Vaccination/Date Given: No Hx Pneumococcal Vaccination/Date Given: No Immunizations Up to Date: Yes Travel Risk - International Travel Have you traveled outside of the country in past 3 weeks: No - Coronavirus Screening Are you exhibiting any of the following symptoms?: No Close contact with a COVID-19 positive Pt in past 14-21 Days: No - Vaccine Status Have you recieved a Covid-19 vaccination: No - Review of Systems Constitutional: No Symptoms Eyes: No Symptoms Ears, Nose, & Throat: No Symptoms Respiratory: No Symptoms Cardiac: No Symptoms Abdominal/Gastrointestinal: No Symptoms Genitourinary Symptoms: No Symptoms Musculoskeletal: Back Pain (R posterior back) Skin: No Symptoms Neurological: No Symptoms Psychological: No Symptoms Endocrine: No Symptoms Hematologic/Lymphatic: No Symptoms Immunological/Allergic: No Symptoms - Past Medical History Pertinent Past Medical History: Yes Neurological History: No Pertinent History ENT History: No Pertinent History Cardiac History: Hypertension Respiratory History: No Pertinent History Endocrine Medical History: Diabetes Type II Musculoskeletal History: No Pertinent History GI Medical History: No Pertinent History History: No Pertinent History Psycho-Social History: No Pertinent History Female Reproductive Disorders: No Pertinent History - Past Surgical History Past Surgical History: Yes Neuro Surgical History: No Pertinent History Cardiac: No Pertinent History Respiratory: No Pertinent History Gastrointestinal: No Pertinent History Genitourinary: No Pertinent History Musculoskeletal: Orthopedic Surgery Female Surgical History: No Pertinent History Other Surgical History: Left knee surgery. mass removed left side with 5th and 6th rib removed. - Social History Smoking Status: Never smoker Exposure to second hand smoke: No Drug Use: none Patient Lives Alone: Yes - Nursing Vital Signs Nursing Vital Signs: Initial Vital Signs Temperature 97.2 F 05/16/22 08:08 Pulse Rate 110 H 05/16/22 08:08 Respiratory Rate 18 05/16/22 08:08 Blood Pressure 198/130 05/16/22 08:08 O2 Sat by Pulse Oximetry 98 05/16/22 08:08 Pain Scale Pain Intensity 4 Hypertensive/Tachycardic - Physical Exam General Appearance: no apparent distress Eye Exam: PERRL/EOMI, eyes nml inspection Ears, Nose, Throat Exam: normal ENT inspection, TMs normal, pharynx normal, moist mucous membranes Neck Exam: normal inspection, non-tender, supple, full range of motion, No meningismus, No mass, No Brudzinski, No Kernig's, No carotid bruit Respiratory Exam: other (Decreased BS inferior L lung field/R lung field clear) Cardiovascular Exam: tachycardia, capillary refill <2 sec Gastrointestinal Exam: soft, normal bowel sounds, No tenderness Back Exam: normal inspection, normal range of motion, No CVA tenderness, No vertebral tenderness Extremity Exam: normal inspection, normal range of motion Peripheral Pulses: carotid (R): 2+, carotid (L): 2+ Neurologic Exam: alert, oriented x 3, cooperative, corrective and manual arts therapist II-XII nml as tested, normal mood/affect, nml cerebellar function, nml station & gait, sensation nml Skin Exam: normal color, warm, dry Lymphatic Exam: No adenopathy SpO2 Interpretation: normal SpO2: 98 O2 Delivery: Room Air - Course Nursing assessment & vital signs reviewed: Yes EKG Interpreted by Me: RATE (NSR/Rate 95/Prolonged QTc/Poor R wave progression/ Old inferior MN/No acute ST segment changes) - Radiology Exams Chest X-ray Interpretation: Discussed w/ radiologist (L pleural effusion) - CT Exams Chest CT Interpretation: Discussed w/radiologist (CTA chest -No PE/L pleural effusion) Abdomen/Pelvis CT Interpretation: Discussed w/radiologist (Nothing acute per Rad) Ordered Tests: Active Orders 24 hr Category Date Time Status EKG-ER Only STAT Care 05/16/22 08:15 Completed IV Insertion STAT Care 05/16/22 11:03 Completed ABDOMEN AND PELVIS W CONTRAST [CT] Stat Exams 05/16/22 10:31 Completed CHEST 1 VIEW (PORTABLE) Stat Exams 05/16/22 08:16 Completed CHEST WITH CONTRAST [CT] Stat Exams 05/16/22 10:30 Completed AMYLASE Stat Lab 05/16/22 08:33 Completed CBC W DIFF Stat Lab 05/16/22 08:33 Completed CMP Stat Lab 05/16/22 08:33 Completed D-DIMER QUANTITATIVE Stat Lab 05/16/22 09:54 Completed LIPASE Stat Lab 05/16/22 08:33 Completed PROTIME WITH INR Stat Lab 05/16/22 08:33 Completed PTT Stat Lab 05/16/22 08:33 Completed TROPONIN Q4H Lab 05/16/22 08:33 Completed UA W/RFX UR CULTURE Stat Lab 05/16/22 08:19 Completed Medication Summary Discontinued Medications Generic Name Dose Route Start Last Admin Trade Name Freq PRN Reason Stop Dose Admin Fentanyl Citrate 25 mcg 05/16/22 11:02 05/16/22 11:21 Fentanyl Citrate 100 Mcg/2 Ml* Vial IV 05/16/22 11:03 25 mcg STAT ONE Administration Fentanyl Citrate Confirm 05/16/22 11:10 Fentanyl Citrate 100 Mcg/2 Ml* Vial Administered 05/16/22 11:11 Dose 100 mcg .ROUTE .STK-MED ONE Labetalol HCl 10 mg 05/16/22 10:15 05/16/22 11:21 Labetalol Hcl 20 Mg/4 Ml Disp.Syringe IV 05/16/22 10:16 10 mg STAT ONE Administration Labetalol HCl Confirm 05/16/22 11:10 Labetalol Hcl 20 Mg/4 Ml Disp.Syringe Administered 05/16/22 11:11 Dose 20 mg IV .STK-MED ONE Ondansetron HCl 4 mg 05/16/22 11:02 05/16/22 11:21 Ondansetron Hcl 4 Mg/2 Ml Vial IV 05/16/22 11:03 4 mg STAT ONE Administration Ondansetron HCl Confirm 05/16/22 11:08 Ondansetron Hcl 4 Mg/2 Ml Vial Administered 05/16/22 11:09 Dose 4 mg .ROUTE .STK-MED ONE Lab/Rad Data: Laboratory Result Diagrams 05/16/22 08:33 05/16/22 08:33 Laboratory Results 05/16/22 05/16/22 05/16/22 Range/Units 09:54 08:33 08:33 WBC (4.0-10.5) x10^3/uL RBC (4.1-5.4) x10^6/uL Hgb (12.0-16.0) g/dL Hct (35-47) % MCV (78-100) fL MCH (26-32) pg MCHC (32-36) g/dL RDW (11.5-14.0) % Plt Count (150-450) x10^3/uL MPV (7.5-11.0) fL Gran % (36.0-66.0) % Immature Gran % (Auto) (0.00-0.4) % Nucleat RBC Rel Count (0.00-0.1) % Eos # (Auto) (0-0.5) x10^3/uL Immature Gran # (Auto) (0.00-0.03) x10^3u/L Absolute Lymphs (auto) (1.0-4.6) x10^3/uL Absolute Monos (auto) (0.0-1.3) x10^3/uL Absolute Nucleated RBC (0.00-0.01) x10^3u/L Lymphocytes % (24.0-44.0) % Monocytes % (0.0-12.0) % Eosinophils % (0.00-5.0) % Basophils % (0.0-0.4) % Absolute Granulocytes (1.4-6.9) x10^3/uL Basophils # (0-0.4) x10^3/uL PT (9.4-12.5) SECONDS INR (0.8-3.0) APTT (25.1-36.5) SECONDS D-Dimer 0.94 H* (0.0-0.50) mg/L Sodium (137-145) mmol/L Potassium (3.5-5.1) mmol/L Chloride (98-107) mmol/L Carbon Dioxide (22-30) mmol/L Anion Gap (5-15) MEQ/L BUN (7-17) mg/dL Creatinine (0.52-1.04) mg/dL Estimated GFR ML/MIN Glucose (74-106) mg/dL Calcium (8.4-10.2) mg/dL Total Bilirubin (0.2-1.3) mg/dL AST (14-36) U/L ALT (0-35) U/L Alkaline Phosphatase (38-126) U/L Troponin I < 0.012 (0.000-0.034) ng/mL Serum Total Protein (6.3-8.2) g/dL Albumin (3.5-5.0) g/dL Amylase 81 (30-110) U/L Lipase 45 (23-300) U/L Urine Color (Yellow) Urine Appearance (Clear) Urine pH (4.6-8.0) Ur Specific [place] (1.005-1.030) Urine Protein (Negative) Urine Glucose (UA) (Negative) mg/dL Urine Ketones (Negative) Urine Blood (Negative) Urine Nitrite (Negative) Urine Bilirubin (Negative) Urine Urobilinogen (0.2) mg/dL Ur Leukocyte Esterase (Negative) U Hyaline Cast (Auto) (0-2) /LPF Urine Microscopic RBC (0-5) /HPF Urine Microscopic WBC (0-5) /HPF Ur Epithelial Cells (None Seen) /HPF Urine Bacteria (None Seen) /HPF Urine Culture Reflexed (NO) 05/16/22 05/16/22 05/16/22 Range/Units 08:33 08:33 08:33 WBC 5.3 (4.0-10.5) x10^3/uL RBC 4.58 (4.1-5.4) x10^6/uL Hgb 13.3 (12.0-16.0) g/dL Hct 42.1 (35-47) % MCV 91.9 (78-100) fL MCH 29.0 (26-32) pg MCHC 31.6 L (32-36) g/dL RDW 14.0 (11.5-14.0) % Plt Count 218 (150-450) x10^3/uL MPV 9.3 (7.5-11.0) fL Gran % 61.3 (36.0-66.0) % Immature Gran % (Auto) 0.4 (0.00-0.4) % Nucleat RBC Rel Count 0.0 (0.00-0.1) % Eos # (Auto) 0.08 (0-0.5) x10^3/uL Immature Gran # (Auto) 0.02 (0.00-0.03) x10^3u/L Absolute Lymphs (auto) 1.59 (1.0-4.6) x10^3/uL Absolute Monos (auto) 0.34 (0.0-1.3) x10^3/uL Absolute Nucleated RBC 0.00 (0.00-0.01) x10^3u/L Lymphocytes % 29.8 (24.0-44.0) % Monocytes % 6.4 (0.0-12.0) % Eosinophils % 1.5 (0.00-5.0) % Basophils % 0.6 (0.0-0.4) % Absolute Granulocytes 3.28 (1.4-6.9) x10^3/uL Basophils # 0.03 (0-0.4) x10^3/uL PT 10.7 (9.4-12.5) SECONDS INR 1.01 (0.8-3.0) APTT 26.7 (25.1-36.5) SECONDS D-Dimer (0.0-0.50) mg/L Sodium 143 (137-145) mmol/L Potassium 3.6 (3.5-5.1) mmol/L Chloride 108 H (98-107) mmol/L Carbon Dioxide 25 (22-30) mmol/L Anion Gap 13.6 (5-15) MEQ/L BUN 9 (7-17) mg/dL Creatinine 0.80 (0.52-1.04) mg/dL Estimated GFR > 60.0 ML/MIN Glucose 133 H (74-106) mg/dL Calcium 9.5 (8.4-10.2) mg/dL Total Bilirubin 0.60 (0.2-1.3) mg/dL AST 24 (14-36) U/L ALT 16 (0-35) U/L Alkaline Phosphatase 97 (38-126) U/L Troponin I (0.000-0.034) ng/mL Serum Total Protein 7.6 (6.3-8.2) g/dL Albumin 4.5 (3.5-5.0) g/dL Amylase (30-110) U/L Lipase (23-300) U/L Urine Color (Yellow) Urine Appearance (Clear) Urine pH (4.6-8.0) Ur Specific [place] (1.005-1.030) Urine Protein (Negative) Urine Glucose (UA) (Negative) mg/dL Urine Ketones (Negative) Urine Blood (Negative) Urine Nitrite (Negative) Urine Bilirubin (Negative) Urine Urobilinogen (0.2) mg/dL Ur Leukocyte Esterase (Negative) U Hyaline Cast (Auto) (0-2) /LPF Urine Microscopic RBC (0-5) /HPF Urine Microscopic WBC (0-5) /HPF Ur Epithelial Cells (None Seen) /HPF Urine Bacteria (None Seen) /HPF Urine Culture Reflexed (NO) 05/16/22 Range/Units 08:19 WBC (4.0-10.5) x10^3/uL RBC (4.1-5.4) x10^6/uL Hgb (12.0-16.0) g/dL Hct (35-47) % MCV (78-100) fL MCH (26-32) pg MCHC (32-36) g/dL RDW (11.5-14.0) % Plt Count (150-450) x10^3/uL MPV (7.5-11.0) fL Gran % (36.0-66.0) % Immature Gran % (Auto) (0.00-0.4) % Nucleat RBC Rel Count (0.00-0.1) % Eos # (Auto) (0-0.5) x10^3/uL Immature Gran # (Auto) (0.00-0.03) x10^3u/L Absolute Lymphs (auto) (1.0-4.6) x10^3/uL Absolute Monos (auto) (0.0-1.3) x10^3/uL Absolute Nucleated RBC (0.00-0.01) x10^3u/L Lymphocytes % (24.0-44.0) % Monocytes % (0.0-12.0) % Eosinophils % (0.00-5.0) % Basophils % (0.0-0.4) % Absolute Granulocytes (1.4-6.9) x10^3/uL Basophils # (0-0.4) x10^3/uL PT (9.4-12.5) SECONDS INR (0.8-3.0) APTT (25.1-36.5) SECONDS D-Dimer (0.0-0.50) mg/L Sodium (137-145) mmol/L Potassium (3.5-5.1) mmol/L Chloride (98-107) mmol/L Carbon Dioxide (22-30) mmol/L Anion Gap (5-15) MEQ/L BUN (7-17) mg/dL Creatinine (0.52-1.04) mg/dL Estimated GFR ML/MIN Glucose (74-106) mg/dL Calcium (8.4-10.2) mg/dL Total Bilirubin (0.2-1.3) mg/dL AST (14-36) U/L ALT (0-35) U/L Alkaline Phosphatase (38-126) U/L Troponin I (0.000-0.034) ng/mL Serum Total Protein (6.3-8.2) g/dL Albumin (3.5-5.0) g/dL Amylase (30-110) U/L Lipase (23-300) U/L Urine Color Yellow (Yellow) Urine Appearance Cloudy A (Clear) Urine pH 5.5 (4.6-8.0) Ur Specific [place] 1.015 (1.005-1.030) Urine Protein 100 A (Negative) Urine Glucose (UA) Negative (Negative) mg/dL Urine Ketones Negative (Negative) Urine Blood Negative (Negative) Urine Nitrite Negative (Negative) Urine Bilirubin Negative (Negative) Urine Urobilinogen 0.2 (0.2) mg/dL Ur Leukocyte Esterase Negative (Negative) U Hyaline Cast (Auto) NONE SEEN (0-2) /LPF Urine Microscopic RBC 0-2 (0-5) /HPF Urine Microscopic WBC 3-5 (0-5) /HPF Ur Epithelial Cells Rare (None Seen) /HPF Urine Bacteria None Seen (None Seen) /HPF Urine Culture Reflexed NO (NO) - Progress Progress: improved Progress Note: 05/16/22 13:02 Nursing note and vital signs reviewed All lab/XR/CT results reviewed and shared w pt 05/16/22 13:03 Pain improved after 25mcg IV Fentanyl/4mg IV Zofran 05/16/22 13:04 BP decreasing after 10mg IV Labetalol/Pt took BP meds while in ER No housing or food insecurities noted Additional history per sister 05/16/22 20:07 Pain appears to be musculoskeletal as she is negative for PE an MN. Pt di scharged in stable condition to f/u with her PCP 05/16/22 20:08 Counseled pt/family regarding: lab results, diagnosis, need for follow-up, rad results - Departure Departure Disposition: Home Clinical Impression: Back pain, thoracic, Hypertension Condition: Stable Critical Care Time: No Referrals: KRISHNA GARCIA NP [Primary Care Provider] - Follow up/PCP as directed Instructions: Upper Back Pain (DC) Additional Instructions: Follow up with your family Pain meds as needed(Use a stool softener with pain meds) Return to ER for increasing pain, shortness of breath, or temperature greater than 100.5 Prescriptions: Hydrocodone/Acetaminophen [Hydrocodone-Acetamin 5-325 mg] 1 each PO Q6HPRN PRN #8 tablet MDD 4 tabs PRN Reason: Pain
[2022-05-16 08:37] LABS: Absolute Neutrophil Ct (ANC) 3.28 x10^3/uL (1.4-6.9); BASOPHIL % 0.6 % (0.0-0.4); Basophil (Absolute #) 0.03 x10^3/uL (0-0.4); Eosinophil % 1.5 % (0.00-5.0); Eosinophil (Absolute #) 0.08 x10^3/uL (0-0.5); Hematocrit 42.1 % (35-47); Hemoglobin 13.3 g/dL (12.0-16.0); IMMATURE GRAN # 0.02 x10^3u/L (0.00-0.03); IMMATURE GRAN % 0.4 % (0.00-0.4); Lymphocyte (Absolute #) 1.59 x10^3/uL (1.0-4.6); Lymphocytes % 29.8 % (24.0-44.0); Mean Cell Volume 91.9 fL (78-100); Mean Corpuscular Hgb Concent. 31.6 g/dL (32-36); Mean Platelet Volume 9.3 fL (7.5-11.0); Monocyte (Absolute #) 0.34 x10^3/uL (0.0-1.3); Monocytes % 6.4 % (0.0-12.0); Neutrophil % 61.3 % (36.0-66.0); Platelet Count 218 x10^3/uL (150-450); Red Blood Count 4.58 x10^6/uL (4.1-5.4); White Blood Count 5.3 x10^3/uL (4.0-10.5)
--- NOTE | 2022-05-16 08:45 | XRAY ---
Indication: Left chest pain. Comparison: None Portable chest demonstrates small left base infiltrate/atelectasis/effusion. Remaining heart and right lung unremarkable. Bony thorax intact with osteopenia mild degenerative changes.
[2022-05-16 09:01] LABS: INR 1.01 (0.8-3.0); PROTIME 10.7 SECONDS (9.4-12.5); PTT 26.7 SECONDS (25.1-36.5)
[2022-05-16 09:06] LABS: Appearance Cloudy (Clear); Bacteria None Seen /HPF (None Seen); Bilirubin Negative (Negative); Blood Negative (Negative); Epithelial Cells Rare /HPF (None Seen); Glucose, Urine Negative (Negative); Hyaline Casts NONE SEEN /LPF (0-2); Ketones Negative (Negative); Leukocyte Esterase Negative (Negative); Nitrite Negative (Negative); Ph 5.5 (4.6-8.0); Protein,Urine Dip 100 (Negative); RBC 0-2 /HPF (0-5); Specific Gravity 1.015 (1.005-1.030); Urobilinogen 0.2 mg/dL (0.2)
[2022-05-16 09:17] LABS: ADD URINE CULTURE? NO (NO)
[2022-05-16 09:38] LABS: ALBUMIN 4.5 g/dL (3.5-5.0); BLOOD UREA NITROGEN 9 mg/dL (7-17); CHLORIDE 108 mmol/L (98-107); Carbon Dioxide 25 mmol/L (22-30); EST GLOMERULAR FILTRATION RATE > 60.0 ML/MIN; Glucose 133 mg/dL (74-106); Total Protein 7.6 g/dL (6.3-8.2)
[2022-05-16 09:56] LABS: ALKALINE PHOSPHATASE 97 U/L (38-126); Calcium 9.5 mg/dL (8.4-10.2); Potassium 3.6 mmol/L (3.5-5.1); SGOT/AST 24 U/L (14-36); SGPT/ALT 16 U/L (0-35); SODIUM 143 mmol/L (137-145)
[2022-05-16 10:03] LABS: AMYLASE 81 U/L (30-110); LIPASE 45 U/L (23-300)
[2022-05-16 10:08] LABS: ANION GAP 13.6 MEQ/L (5-15)
[2022-05-16] MEDS ORDERED: TRANDATE 20 MG/4 ML SYRINGE IV ONE ×2 (10:15→11:10)
[2022-05-16] MEDS ORDERED: SUBLIMAZE 100 MCG/2 ML IV ONE (11:02)
[2022-05-16] MEDS ORDERED: Zofran 4 MG/2 ML VIAL IV ONE (11:02)
[2022-05-16] MEDS ORDERED: Zofran 4 MG/2 ML VIAL ONE (11:08)
[2022-05-16] MEDS ORDERED: SUBLIMAZE 100 MCG/2 ML ONE (11:10)
--- NOTE | 2022-05-16 12:39 | XRAY ---
Indication: Elevated d-dimer. Left chest surgery for tumor removal. Multiple contiguous axial images obtained through the chest using 80 cc Isovue 370 contrast and PE protocol. Comparison: December 31, 2021 Good opacification of the pulmonary arteries to include the lobar and segmental branches. No pulmonary embolus. Heart not enlarged. Aorta is normal in course and caliber. No pathologic mediastinal/hilar lymphadenopathy. Lungs demonstrates interval presumed surgical excision left upper lung pleural-based mass. New moderate left effusion with mild left lower lobe compressive atelectasis. Effusion extends into the fissure producing pseudotumor. Right lung clear with incidental mild dependent atelectasis. Bony thorax intact again with mild generative changes throughout the spine CT abdomen/pelvis reported separately. Impression: 1. Negative pulmonary embolus. 2. Presumed surgical excision previous left pleural mass. Moderate left pleural effusion with pseudotumor as detailed presumed postsurgical. 3. Remaining CT chest with contrast exam is negative.
--- NOTE | 2022-05-16 12:44 | XRAY ---
Indication: Back pain. Multiple contiguous axial images obtained through the abdomen and pelvis using 80 cc Isovue 370 contrast. Comparison: September 27, 2021 CT chest reported separately. Noncontrasted stomach and bowel loops are nonobstructed with normal appendix. Stable heterogeneous lobular uterus again favoring leiomyomatosis with chunky calcified fibroid. Tiny cul-de-sac fluid presumed physiologic from rupture/leaking cyst. Stable tiny bilateral renal cysts. No free air. Remaining liver, gallbladder, pancreas, spleen, adrenal glands, kidneys, ureters, and bladder are unremarkable. Again minimal aortoiliac calcifications. No AAA or pathologic retroperitoneal lymphadenopathy. Stable 1.5 cm mesenteric root calcified node. Osseous structures intact again with osteopenia, mild degenerative changes throughout the spine, and 6 mm right innominate bone island. Impression: 1. New tiny physiologic cul-de-sac fluid. 2. Again uterine leiomyomatosis, bilateral renal cysts, mesenteric root calcified node, arteriosclerotic disease, and chronic bony findings. 3. Remaining CT abdomen/pelvis without contrast exam is negative.
[2022-05-16 12:59] VITALS: O2SAT 98
[2022-05-16 13:10] VITALS: BP 187/104; PULSE 88
== END 2022-05-16 13:19 | disposition home or self-care (01) ==
LOC: ED 07:42
DX: M54.6 Pain in thoracic spine (principal); I10 Essential (primary) hypertension; E11.9 Type 2 diabetes mellitus without complications; Z79.891 Long term (current) use of opiate analgesic; Z79.899 Other long term (current) drug therapy; Z79.84 Long term (current) use of oral hypoglycemic drugs; Z28.310 Unvaccinated for COVID-19
CPT/HCPCS: 36000; 36415; 71045; 71260; 74177; 80053; 81001; 82150; 83690; 84484; 85025; 85379; 85610; 85730; 93005; 96374; 96375; 99284; J2405; J3010

== ENCOUNTER 2022-07-27 11:06 | Emergency (ER) | payer MEDICARE, SELFPAY ==
[2022-07-27] MEDS ORDERED: TORAdol 30 mg Injection IV ONE (11:20)
[2022-07-27] MEDS ORDERED: TORAdol 30 mg Injection IM ONE (11:27)
[2022-07-27] MEDS ORDERED: TORAdol 30 mg Injection ONE (11:28)
--- NOTE | 2022-07-27 11:28 | ERPHSYRPT ---
- History of Present Illness Time Seen by Provider: 07/27/22 11:27 Source: patient Exam Limitations: no limitations Physician History: Patient is a 72-year-old female presents to our ED via EMS for evaluation of right upper back pain. Patient states she has been falling more frequently. She lives alone. Patient fell at home today and hit her upper back on furniture. No BHT or LOC. No neck pain. Cervical spine cleared clinically. Upon arrival to our ED patient observed to be hypertensive at 206 systolic. However patient has not taken her blood pressure medications this morning. Elevated blood pressure may be partially due to her level of pain as well. No other complaints. 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 No complications due to the surgery. Patient has no chest pain. No shortness of breath. No nausea vomiting or diaphoresis. Patient sister at bedside. They voiced no other complaints or concerns at this time. Portions of this note were created with voice recognition technology. There may be grammatical, spelling, punctuation or sound alike errors Timing/Duration: today Severity: moderate Modifying Factors: Improves With: nothing Associated Symptoms: denies symptoms Allergies/Adverse Reactions: No Known Drug Allergies Allergy (Verified 07/27/22 11:10) Home Medications: Atorvastatin Calcium 1 tab PO HS 07/28/21 [History] Lisinopril 20 mg [Zestril 20 MG] 1 tab PO BID 07/28/21 [History] Losartan Potassium 50 mg [Cozaar 50 MG] 50 mg PO DAILY 12/31/21 [History] Pioglitazone 30 mg [Actos 30 MG] 30 mg PO DAILY 12/31/21 [History] Duloxetine HCl 30 mg [Cymbalta 30 MG Capsule] 1 tab PO DAILY 07/27/22 [History] Ropinirole HCl 1 tab PO HS 07/27/22 [History] Hx Tetanus, Diphtheria Vaccination/Date Given: No Hx Influenza Vaccination/Date Given: No Hx Pneumococcal Vaccination/Date Given: No Travel Risk - Vaccine Status Have you recieved a Covid-19 vaccination: No - Review of Systems Constitutional: No Symptoms, No Fever, No Chills Eyes: No Symptoms Ears, Nose, & Throat: No Symptoms Respiratory: No Symptoms, No Cough, No Dyspnea Cardiac: No Symptoms, No Chest Pain, No Edema, No Syncope Abdominal/Gastrointestinal: No Symptoms, No Abdominal Pain, No Nausea, No Vomiting, No Diarrhea Genitourinary Symptoms: No Symptoms, No Dysuria Musculoskeletal: No Symptoms, No Back Pain, No Neck Pain Skin: No Symptoms, No Rash Neurological: No Symptoms, No Dizziness, No Focal Weakness, No Sensory Changes Psychological: No Symptoms Endocrine: No Symptoms Hematologic/Lymphatic: No Symptoms Immunological/Allergic: No Symptoms All Other Systems: Reviewed and Negative - Past Medical History Pertinent Past Medical History: Yes Neurological History: No Pertinent History ENT History: No Pertinent History Cardiac History: Hypertension Respiratory History: No Pertinent History Endocrine Medical History: Diabetes Type II Musculoskeletal History: No Pertinent History GI Medical History: No Pertinent History History: No Pertinent History Psycho-Social History: No Pertinent History Female Reproductive Disorders: No Pertinent History - Past Surgical History Past Surgical History: Yes Neuro Surgical History: No Pertinent History Cardiac: No Pertinent History Respiratory: No Pertinent History Gastrointestinal: No Pertinent History Genitourinary: No Pertinent History Musculoskeletal: Orthopedic Surgery Female Surgical History: No Pertinent History Other Surgical History: Left knee surgery. mass removed left side with 5th and 6th rib removed. - Social History Smoking Status: Never smoker Exposure to second hand smoke: No Drug Use: none Patient Lives Alone: Yes - Nursing Vital Signs Nursing Vital Signs: Initial Vital Signs Temperature 97.6 F 07/27/22 11:12 Pulse Rate 95 H 07/27/22 11:12 Respiratory Rate 20 07/27/22 11:12 Blood Pressure 206/108 07/27/22 11:12 O2 Sat by Pulse Oximetry 98 07/27/22 11:12 Pain Scale Pain Intensity 0 - Physical Exam General Appearance: no apparent distress, alert Eye Exam: PERRL/EOMI, eyes nml inspection Ears, Nose, Throat Exam: normal ENT inspection, TMs normal, pharynx normal, moist mucous membranes Neck Exam: normal inspection, non-tender, supple, full range of motion Respiratory Exam: normal breath sounds, lungs clear, airway intact, No respiratory distress Cardiovascular Exam: regular rate/rhythm, normal heart sounds, normal peripheral pulses Gastrointestinal/Abdomen Exam: soft, normal bowel sounds, No tenderness, No mass Pelvic Exam: not done Back Exam: normal inspection, normal range of motion, No CVA tenderness, No vertebral tenderness Extremity Exam: normal inspection, normal range of motion, pelvis stable, other (Tenderness to palpation over the right scapula. Overlying soft tissue intact. No open or draining lesions.) Neurologic Exam: alert, oriented x 3, cooperative, normal mood/affect, nml cerebellar function, nml station & gait, sensation nml, No motor deficits Skin Exam: normal color, warm, dry, No rash Lymphatic Exam: No adenopathy SpO2 Interpretation: normal SpO2: 97 O2 Delivery: Room Air - Course Nursing assessment & vital signs reviewed: Yes - Radiology Exams Shoulder X-ray Interpretation: Teleradiologist Report (No fracture dislocations. Chronic changes) Ordered Tests: Active Orders 24 hr Category Date Time Status SCAPULA Stat Exams 07/27/22 11:22 Completed CBC W DIFF Stat Lab 07/27/22 11:39 Completed CMP Stat Lab 07/27/22 11:20 Completed TROPONIN Q4H Lab 07/27/22 11:40 Completed TROPONIN Q4H Lab 07/27/22 17:45 Ordered TROPONIN Q4H Lab 07/27/22 21:45 Ordered UA W/RFX UR CULTURE Stat Lab 07/27/22 12:53 Completed Medication Summary Discontinued Medications Generic Name Dose Route Start Last Admin Trade Name Freq PRN Reason Stop Dose Admin Ketorolac Tromethamine 30 mg 07/27/22 11:20 07/27/22 11:27 Ketorolac Tromethamine 30 Mg/Ml Inj IV 07/27/22 11:21 Not Given STAT ONE Ketorolac Tromethamine 30 mg 07/27/22 11:27 07/27/22 11:30 Ketorolac Tromethamine 30 Mg/Ml Inj IM 07/27/22 11:28 30 mg STAT ONE Administration Ketorolac Tromethamine Confirm 07/27/22 11:28 Ketorolac Tromethamine 30 Mg/Ml Inj Administered 07/27/22 11:29 Dose 30 mg .ROUTE .STK-MED ONE Lab/Rad Data: Laboratory Result Diagrams 07/27/22 11:39 07/27/22 11:20 Laboratory Results 07/27/22 07/27/22 07/27/22 Range/Units 12:53 11:40 11:39 WBC 5.0 (4.0-10.5) x10^3/uL RBC 4.41 (4.1-5.4) x10^6/uL Hgb 13.4 (12.0-16.0) g/dL Hct 40.7 (35-47) % MCV 92.3 (78-100) fL MCH 30.4 (26-32) pg MCHC 32.9 (32-36) g/dL RDW 13.5 (11.5-14.0) % Plt Count 226 (150-450) x10^3/uL MPV 9.3 (7.5-11.0) fL Gran % 68.1 H (36.0-66.0) % Immature Gran % (Auto) 0.8 H (0.00-0.4) % Nucleat RBC Rel Count 0.0 (0.00-0.1) % Eos # (Auto) 0.04 (0-0.5) x10^3/uL Immature Gran # (Auto) 0.04 H (0.00-0.03) x10^3u/L Absolute Lymphs (auto) 1.16 (1.0-4.6) x10^3/uL Absolute Monos (auto) 0.33 (0.0-1.3) x10^3/uL Absolute Nucleated RBC 0.00 (0.00-0.01) x10^3u/L Lymphocytes % 23.3 L (24.0-44.0) % Monocytes % 6.6 (0.0-12.0) % Eosinophils % 0.8 (0.00-5.0) % Basophils % 0.4 (0.0-0.4) % Absolute Granulocytes 3.38 (1.4-6.9) x10^3/uL Basophils # 0.02 (0-0.4) x10^3/uL Sodium (137-145) mmol/L Potassium (3.5-5.1) mmol/L Chloride (98-107) mmol/L Carbon Dioxide (22-30) mmol/L Anion Gap (5-15) MEQ/L BUN (7-17) mg/dL Creatinine (0.52-1.04) mg/dL Estimated GFR ML/MIN Glucose (74-106) mg/dL Calcium (8.4-10.2) mg/dL Total Bilirubin (0.2-1.3) mg/dL AST (14-36) U/L ALT (0-35) U/L Alkaline Phosphatase (38-126) U/L Troponin I < 0.012 (0.000-0.034) ng/mL Serum Total Protein (6.3-8.2) g/dL Albumin (3.5-5.0) g/dL Urine Color Dark Yellow A (Yellow) Urine Appearance Cloudy A (Clear) Urine pH 5.5 (4.6-8.0) Ur Specific [place] >=1.030 A (1.005-1.030) Urine Protein 100 A (Negative) Urine Glucose (UA) Negative (Negative) mg/dL Urine Ketones Trace A (Negative) Urine Blood Negative (Negative) Urine Nitrite Negative (Negative) Urine Bilirubin Negative (Negative) Urine Urobilinogen 1.0 A (0.2) mg/dL Ur Leukocyte Esterase Negative (Negative) U Hyaline Cast (Auto) 3-5 A (0-2) /LPF Urine Microscopic RBC 3-5 (0-5) /HPF Urine Microscopic WBC 0-2 (0-5) /HPF Ur Epithelial Cells Few (None Seen) /HPF Urine Bacteria None Seen (None Seen) /HPF Urine Culture Reflexed NO (NO) 07/27/22 Range/Units 11:20 WBC (4.0-10.5) x10^3/uL RBC (4.1-5.4) x10^6/uL Hgb (12.0-16.0) g/dL Hct (35-47) % MCV (78-100) fL MCH (26-32) pg MCHC (32-36) g/dL RDW (11.5-14.0) % Plt Count (150-450) x10^3/uL MPV (7.5-11.0) fL Gran % (36.0-66.0) % Immature Gran % (Auto) (0.00-0.4) % Nucleat RBC Rel Count (0.00-0.1) % Eos # (Auto) (0-0.5) x10^3/uL Immature Gran # (Auto) (0.00-0.03) x10^3u/L Absolute Lymphs (auto) (1.0-4.6) x10^3/uL Absolute Monos (auto) (0.0-1.3) x10^3/uL Absolute Nucleated RBC (0.00-0.01) x10^3u/L Lymphocytes % (24.0-44.0) % Monocytes % (0.0-12.0) % Eosinophils % (0.00-5.0) % Basophils % (0.0-0.4) % Absolute Granulocytes (1.4-6.9) x10^3/uL Basophils # (0-0.4) x10^3/uL Sodium 141 (137-145) mmol/L Potassium 3.8 (3.5-5.1) mmol/L Chloride 105 (98-107) mmol/L Carbon Dioxide 24 (22-30) mmol/L Anion Gap 15.7 H (5-15) MEQ/L BUN 14 (7-17) mg/dL Creatinine 0.83 (0.52-1.04) mg/dL Estimated GFR > 60.0 ML/MIN Glucose 208 H (74-106) mg/dL Calcium 9.4 (8.4-10.2) mg/dL Total Bilirubin 0.80 (0.2-1.3) mg/dL AST 28 (14-36) U/L ALT 23 (0-35) U/L Alkaline Phosphatase 104 (38-126) U/L Troponin I (0.000-0.034) ng/mL Serum Total Protein 7.1 (6.3-8.2) g/dL Albumin 4.4 (3.5-5.0) g/dL Urine Color (Yellow) Urine Appearance (Clear) Urine pH (4.6-8.0) Ur Specific [place] (1.005-1.030) Urine Protein (Negative) Urine Glucose (UA) (Negative) mg/dL Urine Ketones (Negative) Urine Blood (Negative) Urine Nitrite (Negative) Urine Bilirubin (Negative) Urine Urobilinogen (0.2) mg/dL Ur Leukocyte Esterase (Negative) U Hyaline Cast (Auto) (0-2) /LPF Urine Microscopic RBC (0-5) /HPF Urine Microscopic WBC (0-5) /HPF Ur Epithelial Cells (None Seen) /HPF Urine Bacteria (None Seen) /HPF Urine Culture Reflexed (NO) - Progress Progress: improved Progress Note: 72-year-old female presents to our ED via EMS for evaluation of right posterior shoulder pain/upper back after a fall at home. Patient states that she frequently has falls. Patient states this is chronic. Patient's fall was not associated with any chest pain or shortness of breath. No numbness tingling or weakness. No nausea vomiting or diaphoresis. CBC CMP within normal limits. Urinalysis negative. Troponin negative. Patient ambulated in our ED. Normal gait. No weakness. Patient lives independently. Patient states she is hungry and wants to go home. We will discharge patient. No significant findings on this visit today. X-ray of the right posterior shoulder/scapula was negative. No fracture dislocations. Patient received Toradol for pain control. Toradol helped patient's pain. A p rescription for Toradol forwarded to patient's pharmacy. Vital stable. Patient's blood pressure was elevated upon arrival. Patient was in pain at that time and had not taken her a.m. blood pressure medications which were eventually administered here in our ED. Recheck blood pressure was 173/100 Complexity of problems addressed is low. Acute uncomplicated. No critical care time. Complexity of data reviewed and analyzed is moderate. Test ordered. Test is also reviewed and analyzed by Dr. Beltran. Urinalysis independently reviewed by Dr. Beltran. Risk of complication and or risk morbidity/mortality of patient management is moderate. Prescription forwarded to patient's pharmacy. No social determinants of health does not impede patient's follow-up plan. At bedside. They agree to follow-up with primary care doctor within 48 hours for reevaluation. Portions of this note were created with voice recognition technology. There may be grammatical, spelling, punctuation or sound alike errors 07/27/22 14:40 Counseled pt/family regarding: lab results, diagnosis, need for follow-up, rad results - Departure Departure Disposition: Observation Clinical Impression: Fall, Back pain, Proteinuria Condition: Stable Critical Care Time: No Referrals: KRISHNA GARCIA NP [Primary Care Provider] - Follow up/PCP as directed Additional Instructions: Discharge/Care Plan NIESHA GUADALUPE was seen on 07/27/22 in the Emergency Room. The patient was counseled regarding Diagnosis,Lab results, Imaging studies, need for follow up and when to return to the Emergency Room. Prescriptions given: Discharge Note I have spoken with the patient and/or caregivers. I have explained the patient's condition, diagnosis and treatment plan based on the information available to me at this time. I have answered the patient's and/or caregiver's questions and addressed any concerns. The patient and/or caregivers have as good understanding of the patient's diagnosis, condition and treatment plan as can be expected at this point. The vital signs have been stable. The patient's condition is stable and appropriate for discharge from the emergency department. The patient will pursue further outpatient evaluation with the primary care physician or other designated or consulting physician as outlined in the discharge instructions. The patient and/or caregivers are agreeable to this plan of care and follow-up instructions have been explained in detail. The patient and/or caregivers have received these instruction. The patient/and or caregivers are aware that any significant change in condition or worsening of symptoms should prompt an immediate return to this or the closest emergency department or call 911. Prescriptions: Ketorolac Trometh 10 mg Tab [TORAdol 10 MG TABLET] 10 mg PO TID 5 Days #15 tablet
[2022-07-27 11:34] LABS: Absolute Neutrophil Ct (ANC) 3.38 x10^3/uL (1.4-6.9); BASOPHIL % 0.4 % (0.0-0.4); Basophil (Absolute #) 0.02 x10^3/uL (0-0.4); Eosinophil % 0.8 % (0.00-5.0); Eosinophil (Absolute #) 0.04 x10^3/uL (0-0.5); Hematocrit 40.7 % (35-47); Hemoglobin 13.4 g/dL (12.0-16.0); IMMATURE GRAN # 0.04 x10^3u/L (0.00-0.03); IMMATURE GRAN % 0.8 % (0.00-0.4); Lymphocyte (Absolute #) 1.16 x10^3/uL (1.0-4.6); Lymphocytes % 23.3 % (24.0-44.0); Mean Cell Volume 92.3 fL (78-100); Mean Corpuscular Hemoglobin 30.4 pg (26-32); Mean Corpuscular Hgb Concent. 32.9 g/dL (32-36); Mean Platelet Volume 9.3 fL (7.5-11.0); Monocyte (Absolute #) 0.33 x10^3/uL (0.0-1.3); Monocytes % 6.6 % (0.0-12.0); Neutrophil % 68.1 % (36.0-66.0); Platelet Count 226 x10^3/uL (150-450); Red Blood Count 4.41 x10^6/uL (4.1-5.4); Red Cell Distribution Width 13.5 % (11.5-14.0)
[2022-07-27 11:48] LABS: ALBUMIN 4.4 g/dL (3.5-5.0); ALKALINE PHOSPHATASE 104 U/L (38-126); ANION GAP 15.7 MEQ/L (5-15); BLOOD UREA NITROGEN 14 mg/dL (7-17); CHLORIDE 105 mmol/L (98-107); Calcium 9.4 mg/dL (8.4-10.2); Carbon Dioxide 24 mmol/L (22-30); Creatinine 1 0.83 mg/dL (0.52-1.04); EST GLOMERULAR FILTRATION RATE > 60.0 ML/MIN; Glucose 208 mg/dL (74-106); Potassium 3.8 mmol/L (3.5-5.1); SGOT/AST 28 U/L (14-36); SGPT/ALT 23 U/L (0-35); SODIUM 141 mmol/L (137-145); Total Protein 7.1 g/dL (6.3-8.2)
--- NOTE | 2022-07-27 12:11 | XRAY ---
Indication: Pain following fall. Comparison: None 2 portable views right scapula demonstrates osteopenia, mild acromioclavicular degenerative changes, and mild degenerative changes of visualized spine. No other bony, articular, or soft tissue abnormalities.
[2022-07-27 13:18] LABS: Appearance Cloudy (Clear); Bacteria None Seen /HPF (None Seen); Bilirubin Negative (Negative); Blood Negative (Negative); Epithelial Cells Few /HPF (None Seen); Glucose, Urine Negative (Negative); Ketones Trace (Negative); Leukocyte Esterase Negative (Negative); Nitrite Negative (Negative); Ph 5.5 (4.6-8.0); Protein,Urine Dip 100 (Negative); Specific Gravity >=1.030 (1.005-1.030); WBC 0-2 /HPF (0-5)
[2022-07-27 13:19] LABS: ADD URINE CULTURE? NO (NO)
[2022-07-27 14:08] VITALS: BP 178/100
[2022-07-27 14:11] VITALS: PULSE 101
[2022-07-27 14:44] VITALS: O2SAT 97
== END 2022-07-27 14:45 | disposition home or self-care (01) ==
LOC: ED 11:06
DX: M54.6 Pain in thoracic spine (principal); W01.190A Fall on same level from slipping, tripping and stumbling with subsequent striking against furniture, initial encounter; Z91.81 History of falling; R80.9 Proteinuria, unspecified; I10 Essential (primary) hypertension; E11.9 Type 2 diabetes mellitus without complications; Z79.84 Long term (current) use of oral hypoglycemic drugs; Z79.899 Other long term (current) drug therapy; Z28.310 Unvaccinated for COVID-19
CPT/HCPCS: 36415; 73010; 80053; 81001; 84484; 85025; 96372; 99283; J1885

== ENCOUNTER 2023-02-13 00:48 | Emergency (ER) | payer MEDICARE ==
[2023-02-13 01:21] VITALS: TEMP 98; O2SAT 97
--- NOTE | 2023-02-13 01:29 | ERPHSYRPT ---
- History of Present Illness Time Seen by Provider: 02/13/23 01:25 Source: patient Exam Limitations: no limitations Patient Subjective Stated Complaint: pt states that the right side of her back at the base of her ribs started hurting a few days ago and has increased over the last 24hr. states this pain radiates around to her right lateral rib area. pt states she has chronic back pain and has a compression fracture. states pain is intermittent and describes it as sharp. pt states this is similar to her chronic back pain that has been more frequent and intense since she was diagnosed with the compression fracture (unknown level). Triage Nursing Assessment: pt ambulated with cane and support of family member into room 9 after standing on scale for weight acquisition. pt ambulated with a slow steady gait. pt is alert and oriented times three, is able to move all extremities, is able to speak in complete sentences, and is with resp even and unlabored. pt denies numbness or tingling, color and cap refill to all extremities is within normal limits. bilat radial and posterior tib pulses palpable. no edema noted. pt is able to wiggle all fingers and toes. pt denies any new loss of bowel or bladder control. skin pale, warm, dry, and intact. Physician History: 9-year-old female presents emergency department for evaluation of back pain that started a few days ago. Patient states back pain is worsening and now radiating towards the right flank. Patient admits to recent history of lumbar spine compression fractures. Patient denies any interval injury or trauma. No fever. No hematuria dysuria. Pain described as an ache that is rated 10 out of 10. Symptoms are moderate to severe in intensity. No other complaints. No saddle anesthesia. No change in bowel bladder function. No recent back procedures. Sister at bedside. They voiced no other complaints or concerns at this time. Portions of this note were created with voice recognition technology. There may be grammatical, spelling, punctuation or sound alike errors Timing/Duration: day(s) Method of Injury: unknown (No trauma) Quality: aching Back Pain Location: lumbar spine Severity of Pain-Max: moderate Severity of Pain-Current: mild Modifying Factors: Improves With: nothing Associated Symptoms: denies symptoms Previous symptoms: same symptoms as today Allergies/Adverse Reactions: No Known Drug Allergies Allergy (Verified 02/13/23 00:57) Home Medications: Atorvastatin Calcium 1 tab PO DAILY 07/28/21 [History] Lisinopril 20 mg [Zestril 20 MG] 1 tab PO HS 07/28/21 [History] Losartan Potassium 50 mg [Cozaar 50 MG] 2 tab PO DAILY 12/31/21 [History] Pioglitazone 30 mg [Actos 30 MG] 30 mg PO DAILY 12/31/21 [History] Duloxetine HCl 30 mg [Cymbalta 30 MG Capsule] 1 tab PO HS 07/27/22 [History] Ropinirole HCl 1 tab PO HS 07/27/22 [History] Alendronate Sodium 70 mg [Fosamax 70 MG] 70 mg PO WEEKLY 02/13/23 [History] Meclizine HCl 25 mg [Antivert 25 mg] 25 mg PO HS 02/13/23 [History] Hx Tetanus, Diphtheria Vaccination/Date Given: No Hx Influenza Vaccination/Date Given: No Hx Pneumococcal Vaccination/Date Given: No Immunizations Up to Date: No Travel Risk - International Travel Have you traveled outside of the country in past 3 weeks: No - Coronavirus Screening Are you exhibiting any of the following symptoms?: No Close contact with a COVID-19 positive Pt in past 14-21 Days: No - Vaccine Status Have you recieved a Covid-19 vaccination: No - Review of Systems Constitutional: No Symptoms, No Fever, No Chills Eyes: No Symptoms Ears, Nose, & Throat: No Symptoms Respiratory: No Symptoms, No Cough, No Dyspnea Cardiac: No Symptoms, No Chest Pain, No Edema, No Syncope Abdominal/Gastrointestinal: No Symptoms, No Abdominal Pain, No Nausea, No Vomiting, No Diarrhea Genitourinary Symptoms: No Symptoms, No Dysuria Musculoskeletal: No Symptoms, No Back Pain, No Neck Pain Skin: No Symptoms, No Rash Neurological: No Symptoms, No Dizziness, No Focal Weakness, No Sensory Changes Psychological: No Symptoms Endocrine: No Symptoms Hematologic/Lymphatic: No Symptoms Immunological/Allergic: No Symptoms All Other Systems: Reviewed and Negative - Past Medical History Pertinent Past Medical History: Yes Neurological History: Other ENT History: No Pertinent History Cardiac History: High Cholesterol, Hypertension Respiratory History: No Pertinent History Endocrine Medical History: Diabetes Type II Musculoskeletal History: Fractures GI Medical History: No Pertinent History History: No Pertinent History Psycho-Social History: No Pertinent History Female Reproductive Disorders: No Pertinent History Other Medical History: compression fracture. vertigo. 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 compression fracture repair. mass removed left side with 5th and 6th rib removed. - Social History Smoking Status: Never smoker Exposure to second hand smoke: No Drug Use: none Patient Lives Alone: Yes - Nursing Vital Signs Nursing Vital Signs: Initial Vital Signs Temperature 98.0 F 02/13/23 00:57 Pulse Rate 94 H 02/13/23 00:57 Respiratory Rate 16 02/13/23 00:57 Blood Pressure 217/121 02/13/23 00:57 O2 Sat by Pulse Oximetry 97 02/13/23 00:57 Pain Scale Pain Intensity 5 - Physical Exam General Appearance: no apparent distress, alert Eye Exam: PERRL/EOMI, eyes nml inspection Neck Exam: normal inspection, non-tender, supple, full range of motion, No meningismus, No midline tenderness Respiratory Exam: normal breath sounds, lungs clear, airway intact, No res piratory distress Cardiovascular Exam: regular rate/rhythm, normal heart sounds Gastrointestinal Exam: soft, No tenderness, No mass Extremity Exam: normal inspection, normal range of motion, No calf tenderness, No pedal edema Neurologic Exam: alert, oriented x 3, cooperative, banking supervisor II-XII nml as tested, normal mood/affect, nml station & gait, sensation nml, No motor deficits Skin Exam: normal color, warm, dry, No rash Lymphatic Exam: No adenopathy SpO2 Interpretation: normal SpO2: 97 O2 Delivery: Room Air - Course Nursing assessment & vital signs reviewed: Yes - CT Exams Abdomen/Pelvis CT Interpretation: Tele-radiologist Report (No evidence of any acute fracture dislocation or spondylolisthesis. No significant soft tissue injury could be seen straightening of the lumbosacral spine is seen is likely due to musculoskeletal spasm. Moderate spondylitic changes of the lumbar spine) Other CT Interpretation: Tele-radiologist Report (CT reconstruction view of the lumbar spine is essentially significant for chronic changes. No acute findings. No dissection.) Ordered Tests: Active Orders 24 hr Category Date Time Status ABDOMEN AND PELVIS W/0 CONTRAS [CT] Stat Exams 02/13/23 01:20 Completed RECONSTRUCTION [CT] Stat Exams 02/13/23 01:23 Completed CBC W DIFF Stat Lab 02/13/23 01:53 Completed CMP Stat Lab 02/13/23 01:53 Completed UA W/RFX UR CULTURE Stat Lab 02/13/23 03:18 Completed Medication Summary Discontinued Medications Generic Name Dose Route Start Last Admin Trade Name Freq PRN Reason Stop Dose Admin Morphine Sulfate 2 mg 02/13/23 01:24 02/13/23 02:19 Morphine Sulfate 2 Mg/Ml Inj IV 02/13/23 01:25 Not Given STAT ONE Morphine Sulfate Confirm 02/13/23 01:41 Morphine Sulfate 2 Mg/Ml Inj Administered 02/13/23 01:42 Dose 2 mg .ROUTE .STK-MED ONE Morphine Sulfate 4 mg 02/13/23 02:04 02/13/23 02:23 Morphine Sulfate 4 Mg/Ml Injection IM 02/13/23 02:05 4 mg STAT ONE Administration Morphine Sulfate Confirm 02/13/23 02:21 Morphine Sulfate 4 Mg/Ml Injection Administered 02/13/23 02:22 Dose 4 mg .ROUTE .STK-MED ONE Ondansetron HCl 4 mg 02/13/23 01:24 02/13/23 02:19 Ondansetron Hcl 4 Mg/2 Ml Vial IV 02/13/23 01:25 Not Given STAT ONE Ondansetron HCl Confirm 02/13/23 01:40 Ondansetron Hcl 4 Mg/2 Ml Vial Administered 02/13/23 01:41 Dose 4 mg .ROUTE .STK-MED ONE Ondansetron HCl Confirm 02/13/23 01:51 Zofran 4 Mg/Udtablet Orally Disintegrating Administered 02/13/23 01:52 Dose 4 mg .ROUTE .STK-MED ONE Ondansetron HCl 4 mg 02/13/23 01:55 02/13/23 02:23 Zofran 4 Mg/Udtablet Orally Disintegrating PO 02/13/23 01:56 4 mg STAT ONE Administration Lab/Rad Data: Laboratory Result Diagrams 02/13/23 01:53 02/13/23 01:53 Laboratory Results 02/13/23 02/13/23 02/13/23 Range/Units 03:18 01:53 01:53 WBC 5.5 (4.0-10.5) x10^3/uL RBC 3.93 L (4.1-5.4) x10^6/uL Hgb 12.0 (12.0-16.0) g/dL Hct 38.0 (35-47) % MCV 96.7 (78-100) fL MCH 30.5 (26-32) pg MCHC 31.6 L (32-36) g/dL RDW 12.6 (11.5-14.0) % Plt Count 207 (150-450) x10^3/uL MPV 9.4 (7.5-11.0) fL Gran % 55.3 (36.0-66.0) % Immature Gran % (Auto) 0.2 (0.00-0.4) % Nucleat RBC Rel Count 0.0 (0.00-0.1) % Eos # (Auto) 0.10 (0-0.5) x10^3/uL Immature Gran # (Auto) 0.01 (0.00-0.03) x10^3u/L Absolute Lymphs (auto) 1.88 (1.0-4.6) x10^3/uL Absolute Monos (auto) 0.44 (0.0-1.3) x10^3/uL Absolute Nucleated RBC 0.00 (0.00-0.01) x10^3u/L Lymphocytes % 34.3 (24.0-44.0) % Monocytes % 8.0 (0.0-12.0) % Eosinophils % 1.8 (0.00-5.0) % Basophils % 0.4 (0.0-0.4) % Absolute Granulocytes 3.03 (1.4-6.9) x10^3/uL Basophils # 0.02 (0-0.4) x10^3/uL Sodium 140 (137-145) mmol/L Potassium 4.3 (3.5-5.1) mmol/L Chloride 107 (98-107) mmol/L Carbon Dioxide 27 (22-30) mmol/L Anion Gap 10.8 (5-15) MEQ/L BUN 15 (7-17) mg/dL Creatinine 0.77 (0.52-1.04) mg/dL Estimated GFR > 60.0 ML/MIN Glucose 142 H (74-106) mg/dL Calcium 8.8 (8.4-10.2) mg/dL Total Bilirubin 0.50 (0.2-1.3) mg/dL AST 37 H (14-36) U/L ALT 27 (0-35) U/L Alkaline Phosphatase 106 (38-126) U/L Serum Total Protein 6.9 (6.3-8.2) g/dL Albumin 4.4 (3.5-5.0) g/dL Urine Color Yellow (Yellow) Urine Appearance Clear (Clear) Urine pH 6.5 (4.6-8.0) Ur Specific [place] 1.015 (1.005-1.030) Urine Protein Negative (Negative) Urine Glucose (UA) Negative (Negative) mg/dL Urine Ketones Negative (Negative) Urine Blood Negative (Negative) Urine Nitrite Negative (Negative) Urine Bilirubin Negative (Negative) Urine Urobilinogen 0.2 (0.2) mg/dL Ur Leukocyte Esterase Negative (Negative) U Hyaline Cast (Auto) NONE SEEN (0-2) /LPF Urine Microscopic RBC 0-2 (0-5) /HPF Urine Microscopic WBC 0-2 (0-5) /HPF Ur Epithelial Cells None Seen (None Seen) /HPF Urine Bacteria None Seen (None Seen) /HPF Urine Culture Reflexed NO (NO) - Progress Progress: improved Progress Note: Patient 72-year-old female presents to our ED for evaluation of pain to her low back radiating to the right flank. Laboratory work-up includes CBC CMP which are essentially within normal limits. UA negative. Patient refused her IV so we changed her medications from IV to p.o. and IM. Patient received morphine IM and Zofran p.o. CT abdomen pelvis with 3D reconstruction views of the lumbar spine were completed. No acute pathology observed. Patient reassessed. Pain significantly improved. Patient resting comfortably. Patient requesting discharge. Patient's blood pressure is elevated. However patient is due for her a.m. medications this morning. Patient states she will take her medications when she gets home. Will discharge at this time. Patient voices no other complaints or concerns at this time. Portions of this note were created with voice recognition technology. There may be grammatical, spelling, punctuation or sound alike errors Complexity of problems addressed is moderate acute complicated No critical care time Complexity of data reviewed and analyzed is moderate. Test ordered test reviewed. Results were analyzed and clinically correlated with history and physical exam. Risk of complication and or risk of morbidity/mortality of patient management is low. Vital stable. Time spent to discharge patient is approximately 15 minutes. Plan of care established for shared decision making. Patient agrees to follow- up with her primary care doctor within 48 hours for reevaluation. No social determinants of health present to impede follow-up. Portions of this note were created with voice recognition technology. There may be grammatical, spelling, punctuation or sound alike errors 02/13/23 04:07 Counseled pt/family regarding: lab results, diagnosis, need for follow-up, rad results - Departure Departure Disposition: Home Clinical Impression: Osteopenia, Left renal cyst, Uterine nodule, Sigmoid diverticulosis, Mild left- sided pleural effusion, Hypertension Condition: Stable Critical Care Time: No Referrals: KRISHNA GARCIA NP [Primary Care Provider] - Follow up/PCP as directed Additional Instructions: Uterine mass versus uterine nodule observed on today's CAT scan. You will need a follow-up ultrasound to further assess this lesion Discharge/Care Plan ANAYELINIESHA DELUNA was seen on 02/13/23 in the Emergency Room. The patient was counseled regarding Diagnosis,Lab results, Imaging studies, need for follow up and when to return to the Emergency Room. Prescriptions given: Discharge Note I have spoken with the patient and/or caregivers. I have explained the patient's condition, diagnosis and treatment plan based on the information available to me at this time. I have answered the patient's and/or caregiver's questions and addressed any concerns. The patient and/or caregivers have as good understanding of the patient's diagnosis, condition and treatment plan as can be expected at this point. The vital signs have been stable. The patient's condition is stable and appropriate for discharge from the emergency department. The patient will pursue further outpatient evaluation with the primary care physician or other designated or consulting physician as outlined in the discharge instructions. The patient and/or caregivers are agreeable to this plan of care and follow-up instructions have been explained in detail. The patient and/or caregivers have received these instruction. The patient/and or caregivers are aware that any significant change in condition or worsening of symptoms should prompt an immediate return to this or the closest emergency department or call 911.
[2023-02-13] MEDS ORDERED: Zofran 4 MG/2 ML VIAL ONE (01:40)
[2023-02-13] MEDS ORDERED: MORPHINE SULFATE 2 MG INJ ONE (01:41)
[2023-02-13] MEDS: MORPHINE SULFATE 2 MG INJ IV ONE ×2 (01:41→02:19)
[2023-02-13] MEDS: Zofran 4 MG/2 ML VIAL IV ONE ×2 (01:42→02:19)
[2023-02-13] MEDS ORDERED: ZOFRAN ODT 4 MG ONE (01:51)
[2023-02-13 01:55] LABS: Absolute Neutrophil Ct (ANC) 3.03 x10^3/uL (1.4-6.9); BASOPHIL % 0.4 % (0.0-0.4); Basophil (Absolute #) 0.02 x10^3/uL (0-0.4); Eosinophil % 1.8 % (0.00-5.0); IMMATURE GRAN # 0.01 x10^3u/L (0.00-0.03); IMMATURE GRAN % 0.2 % (0.00-0.4); Lymphocyte (Absolute #) 1.88 x10^3/uL (1.0-4.6); Lymphocytes % 34.3 % (24.0-44.0); Mean Cell Volume 96.7 fL (78-100); Mean Corpuscular Hemoglobin 30.5 pg (26-32); Mean Corpuscular Hgb Concent. 31.6 g/dL (32-36); Mean Platelet Volume 9.4 fL (7.5-11.0); Monocyte (Absolute #) 0.44 x10^3/uL (0.0-1.3); Neutrophil % 55.3 % (36.0-66.0); Platelet Count 207 x10^3/uL (150-450); Red Blood Count 3.93 x10^6/uL (4.1-5.4); Red Cell Distribution Width 12.6 % (11.5-14.0); White Blood Count 5.5 x10^3/uL (4.0-10.5)
[2023-02-13] MEDS ORDERED: ZOFRAN ODT 4 MG PO ONE (01:55)
[2023-02-13] MEDS ORDERED: MORPHINE SULFATE 4 MG INJ IM ONE (02:04)
[2023-02-13 02:08] LABS: ALBUMIN 4.4 g/dL (3.5-5.0); ALKALINE PHOSPHATASE 106 U/L (38-126); ANION GAP 10.8 MEQ/L (5-15); BLOOD UREA NITROGEN 15 mg/dL (7-17); CHLORIDE 107 mmol/L (98-107); Calcium 8.8 mg/dL (8.4-10.2); Carbon Dioxide 27 mmol/L (22-30); Creatinine 1 0.77 mg/dL (0.52-1.04); EST GLOMERULAR FILTRATION RATE > 60.0 ML/MIN; Glucose 142 mg/dL (74-106); Potassium 4.3 mmol/L (3.5-5.1); SGOT/AST 37 U/L (14-36); SGPT/ALT 27 U/L (0-35); SODIUM 140 mmol/L (137-145); Total Protein 6.9 g/dL (6.3-8.2)
[2023-02-13] MEDS ORDERED: MORPHINE SULFATE 4 MG INJ ONE (02:21)
--- NOTE | 2023-02-13 02:31 | XRAY ---
CLINICAL HISTORY:pain COMPARISON:None. TECHNIQUE:CT scan without contrast lumbar spine done. Axial images were obtained with reformatted coronal and sagittal images and submitted for interpretation. FINDINGS: No evidence of any acute fracture dislocation or spondylolisthesis. No significant soft tissue injury could be seen. Straightening of the lumbosacral spine is seen as likely due to musculoskeletal spasm. Generalized osteopenia seen. Vertebral body disc height appears normal. Subchondral sclerosis and marginal osteophyte formations are seen. Reduced intervertebral disc height is noted at the L4-L5 level. Multilevel facet joint arthropathy is visualized. No evidence of significant spinal canal or neural foramina stenosis.MRI of the cervical spine is advised for further evaluation. A suspicious Old healing right-sided laminar fracture is noted at L4-L5 with significant sclerotic changes on the right side. No acute injury could be seen. Bilateral sacroiliac joints appear within normal limits. 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 No significant soft tissue injury could be seen. Straightening of the lumbosacral spine is seen as likely due to musculoskeletal spasms. Moderate spondylotic changes of the lumbar spine. Electronically Signed by: Moriah Rowley MD. (02/13/2023 01:30:38 EXECUTIVE BUSINESS COACH)
--- NOTE | 2023-02-13 02:33 | XRAY ---
CLINICAL HISTORY:pain COMPARISON:None TECHNIQUE:Axial images of CT abdomen and pelvis were obtained without administration of intravenous contrast. Reformatted coronal and sagittal images were acquired. FINDINGS: The liver is normal in size and attenuation. No discrete focal hepatic lesion was seen. No evidence of intrahepatic biliary dilatation. The gallbladder is normally distended. No radiopaque calculus or evidence of acute cholecystitis. Bilateral adrenal glands, spleen, and pancreas appear unremarkable. A small splenunculus is seen. Both kidneys are normal in size and shape, with no discrete renal calculus or evidence of obstructive uropathy. Cyst measuring approximately 1.2 x 0.6 cm arising from the left kidney. The urinary bladder is unremarkable. Uterus size is normal for age. There is a 4 cm nodular lesion next to the uterus, density similar uterus. It extends to the left parametrial area. No right adnexal mass. The stomach is partially distended. Few sigmoid colonic diverticuli without evidence of acute diverticulitis. Visualized small bowel loops and appendix appear grossly unremarkable. No ascites or pneumoperitoneum. No significant abdominal or pelvic lymphadenopathy. Mild left-sided pleural effusion. Bibasilar atelectatic changes. Degenerative changes in the visualized spine. Reduced T11 vertebral body heights. Evidence of vertebroplasty in the T11 and T10 vertebral bodies. No acute osseous abnormality. IMPRESSION: No acute intra-abdominal or pelvic pathology. 4 cm nodular lesion next to the uterus, density similar to uterus, extending to the left parametrial area. It might be suggestive of uterine fibroid. On the other hand, left adnexal mass cannot be excluded in non-contrast study. US correlation is recommended. Sigmoid diverticulosis without acute diverticulitis. Left renal cyst. Mild left-sided pleural effusion. Electronically Signed by: Moriah Rowley MD. (02/13/2023 01:32:14 AESTHETICS INSTRUCTOR)
[2023-02-13 03:28] LABS: Appearance Clear (Clear); Bacteria None Seen /HPF (None Seen); Bilirubin Negative (Negative); Blood Negative (Negative); Epithelial Cells None Seen /HPF (None Seen); Glucose, Urine Negative (Negative); Hyaline Casts NONE SEEN /LPF (0-2); Ketones Negative (Negative); Leukocyte Esterase Negative (Negative); Nitrite Negative (Negative); Ph 6.5 (4.6-8.0); Protein,Urine Dip Negative (Negative); RBC 0-2 /HPF (0-5); Specific Gravity 1.015 (1.005-1.030); Urobilinogen 0.2 mg/dL (0.2); WBC 0-2 /HPF (0-5)
[2023-02-13 03:34] LABS: ADD URINE CULTURE? NO (NO)
[2023-02-13 04:02] VITALS: PULSE 82; RESP 16
[2023-02-13 04:04] VITALS: BP 190/88
== END 2023-02-13 04:32 | disposition home or self-care (01) ==
LOC: ED 00:48
DX: M85.89 Other specified disorders of bone density and structure, multiple sites (principal); N28.1 Cyst of kidney, acquired; N85.8 Other specified noninflammatory disorders of uterus; K57.30 Diverticulosis of large intestine without perforation or abscess without bleeding; J90 Pleural effusion, not elsewhere classified; I10 Essential (primary) hypertension; M54.9 Dorsalgia, unspecified; E78.5 Hyperlipidemia, unspecified; E11.9 Type 2 diabetes mellitus without complications; Z79.84 Long term (current) use of oral hypoglycemic drugs; Z79.899 Other long term (current) drug therapy; Z28.310 Unvaccinated for COVID-19
CPT/HCPCS: 36415; 74176; 76376; 80053; 81001; 85025; 96372; 99284; J2270; J2405; Q0162

== ENCOUNTER 2023-04-11 05:17 | Emergency (ER) | payer MEDICARE ==
[2023-04-11 06:00] VITALS: TEMP 97.3
[2023-04-11] MEDS ORDERED: MORPHINE SULFATE 4 MG INJ IV ONE (06:17)
[2023-04-11] MEDS ORDERED: Zofran 4 MG/2 ML VIAL IV ONE (06:17)
[2023-04-11] MEDS ORDERED: Zofran 4 MG/2 ML VIAL ONE (06:21)
[2023-04-11] MEDS ORDERED: MORPHINE SULFATE 4 MG INJ ONE (06:22)
--- NOTE | 2023-04-11 06:24 | ERPHSYRPT ---
- History of Present Illness Historian: patient Exam Limitations: no limitations Patient Subjective Stated Complaint: pt states that she has had this same abdominal/ back pain for several months and has been seen multiple times and had workups completed which didn't find any cause to her pain. she reports that she is also nauseated but hasn't vomited. states pain is to bilat upper abdomen and radiates around to bilat flank areas, describes it as a constant ache with intermittent "stings, throbs, spasms", and is rated 10/10. Triage Nursing Assessment: pt ambulated to room 9 independently with slow steady gait and use of a cane after standing on scales for weight acquisition. pt denies being able to provide urine sample at this time as she just urinated prior to coming to ED. pt is alert and oriented times three, able to move all extremities, able to speak in complete sentences, and with resp even and unlabored. abdomen is obese, soft, nontender to palpation, and with positive bowel sounds in all quadrants with LBM last pm. denies change to appetite, difficulty/ change with urination or bowel elimination, cp, diarrhea, constipation, sob, difficulty breathing, lightheadedness or dizziness. no edema noted. skin warm, pink, dry, and intact. Hx Tetanus, Diphtheria Vaccination/Date Given: No Hx Influenza Vaccination/Date Given: No Hx Pneumococcal Vaccination/Date Given: No Immunizations Up to Date: No <DINESH FONTANA - Last Filed: 04/11/23 06:18> <PHILLY CARVAJAL - Last Filed: 04/11/23 08:07> - History of Present Illness Time Seen by Provider: 04/11/23 06:03 Physician History: 73-year-old female with history of hypertension, hyperlipidemia, diabetes mellitus presented in the ER with chief complaint of bilateral flank pain/back pain. Patient reported having this pain off and on for quite some time but lately getting worse. Described this as a constant dull ache, spasms which wraps around both side of upper abdomen with associated nausea but no vomiting. Denies any midline back pain but does have history of compression fracture surgery without any fall after surgery. Patient denies any radiation of pain to lower extremities/saddle anesthesia, loss of bowel or bladder control. No numbness or weakness of lower extremities. (DINESH FONTANA) Allergies/Adverse Reactions: No Known Drug Allergies Allergy (Verified 04/11/23 05:26) Home Medications: Atorvastatin Calcium 1 tab PO DAILY 07/28/21 [History] Lisinopril 20 mg [Zestril 20 MG] 1 tab PO HS 07/28/21 [History] Losartan Potassium 50 mg [Cozaar 50 MG] 2 tab PO DAILY 12/31/21 [History] Pioglitazone 30 mg [Actos 30 MG] 30 mg PO DAILY 12/31/21 [History] Duloxetine HCl 30 mg [Cymbalta 30 MG Capsule] 1 tab PO HS 07/27/22 [History] Ropinirole HCl 1 tab PO HS 07/27/22 [History] Alendronate Sodium 70 mg [Fosamax 70 MG] 70 mg PO WEEKLY 02/13/23 [History] Meclizine HCl 25 mg [Antivert 25 mg] 25 mg PO HS 02/13/23 [History] Travel Risk - International Travel Have you traveled outside of the country in past 3 weeks: No - Coronavirus Screening Are you exhibiting any of the following symptoms?: No Close contact with a COVID-19 positive Pt in past 14-21 Days: No - Vaccine Status Have you recieved a Covid-19 vaccination: No <DINESH FONTANA - Last Filed: 04/11/23 06:18> - Review of Systems Constitutional: No Symptoms Eyes: No Symptoms Ears, Nose, & Throat: No Symptoms Respiratory: No Symptoms Cardiac: No Symptoms Abdominal/Gastrointestinal: Abdominal Pain, Nausea Genitourinary Symptoms: No Symptoms Musculoskeletal: Back Pain Skin: No Symptoms Neurological: No Symptoms Endocrine: No Symptoms Hematologic/Lymphatic: No Symptoms <DINESH FONTANA - Last Filed: 04/11/23 06:18> - Past Medical History Pertinent Past Medical History: Yes Neurological History: Other ENT History: No Pertinent History Cardiac History: High Cholesterol, Hypertension Respiratory History: No Pertinent History Endocrine Medical History: Diabetes Type II Musculoskeletal History: Fractures GI Medical History: No Pertinent History History: No Pertinent History Psycho-Social History: Depression Female Reproductive Disorders: No Pertinent History Other Medical History: compression fracture. vertigo. 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 compression fracture repair. mass removed left side with 5th and 6th rib removed. - Social History Smoking Status: Never smoker Exposure to second hand smoke: No Drug Use: none Patient Lives Alone: Yes <DINESH FONTANA - Last Filed: 04/11/23 06:18> - Physical Exam General Appearance: no apparent distress, alert Eye Exam: PERRL/EOMI Ears, Nose, Throat Exam: normal ENT inspection Neck Exam: normal inspection, non-tender, supple, full range of motion Respiratory Exam: normal breath sounds, lungs clear Cardiovascular Exam: regular rate/rhythm, normal heart sounds Gastrointestinal/Abdomen Exam: soft, normal bowel sounds, tenderness (Right flank) Back Exam: normal range of motion, CVA tenderness (Right side) Extremity Exam: normal inspection, normal range of motion Neurologic Exam: alert, oriented x 3, cooperative Skin Exam: normal color SpO2 Interpretation: normal SpO2: 95 O2 Delivery: Room Air <DINESH FONTANA - Last Filed: 04/11/23 06:18> - Nursing Vital Signs Nursing Vital Signs: Initial Vital Signs Temperature 97.3 F 04/11/23 05:30 Pulse Rate 86 04/11/23 05:30 Respiratory Rate 22 04/11/23 05:30 Blood Pressure 203/104 04/11/23 05:30 O2 Sat by Pulse Oximetry 96 04/11/23 05:30 Pain Scale Pain Intensity 2 Ordered Tests: Active Orders 24 hr Category Date Time Status IV Insertion STAT Care 04/11/23 06:17 Active NPO (ED) STAT Care 04/11/23 06:17 Active ABDOMEN AND PELVIS W/0 CONTRAS [CT] Stat Exams 04/11/23 06:17 Completed CBC W DIFF Stat Lab 04/11/23 06:23 Completed CMP Stat Lab 04/11/23 06:23 Completed LIPASE Stat Lab 04/11/23 06:23 Completed Lactic Acid Stat Lab 04/11/23 06:40 Completed UA W/RFX UR CULTURE Stat Lab 04/11/23 07:42 Completed Medication Summary Discontinued Medications Generic Name Dose Route Start Last Admin Trade Name Alex PRN Reason Stop Dose Admin Morphine Sulfate 4 mg 04/11/23 06:17 04/11/23 06:25 Morphine Sulfate 4 Mg/Ml Injection IV 04/11/23 06:18 4 mg STAT ONE Administration Morphine Sulfate Confirm 04/11/23 06:22 Morphine Sulfate 4 Mg/Ml Injection Administered 04/11/23 06:23 Dose 4 mg .ROUTE .STK-MED ONE Ondansetron HCl 4 mg 04/11/23 06:17 04/11/23 06:25 Ondansetron Hcl 4 Mg/2 Ml Vial IV 04/11/23 06:18 4 mg STAT ONE Administration Ondansetron HCl Confirm 04/11/23 06:21 Ondansetron Hcl 4 Mg/2 Ml Vial Administered 04/11/23 06:22 Dose 4 mg .ROUTE .STK-MED ONE Lab/Rad Data: Laboratory Result Diagrams 04/11/23 06:23 04/11/23 06:23 Laboratory Results 04/11/23 04/11/23 04/11/23 Range/Units 07:42 06:40 06:23 WBC (4.0-10.5) x10^3/uL RBC (4.1-5.4) x10^6/uL Hgb (12.0-16.0) g/dL Hct (35-47) % MCV (78-100) fL MCH (26-32) pg MCHC (32-36) g/dL RDW (11.5-14.0) % Plt Count (150-450) x10^3/uL MPV (7.5-11.0) fL Gran % (36.0-66.0) % Immature Gran % (Auto) (0.00-0.4) % Nucleat RBC Rel Count (0.00-0.1) % Eos # (Auto) (0-0.5) x10^3/uL Immature Gran # (Auto) (0.00-0.03) x10^3u/L Absolute Lymphs (auto) (1.0-4.6) x10^3/uL Absolute Monos (auto) (0.0-1.3) x10^3/uL Absolute Nucleated RBC (0.00-0.01) x10^3u/L Lymphocytes % (24.0-44.0) % Monocytes % (0.0-12.0) % Eosinophils % (0.00-5.0) % Basophils % (0.0-0.4) % Absolute Granulocytes (1.4-6.9) x10^3/uL Basophils # (0-0.4) x10^3/uL Sodium 141 (137-145) mmol/L Potassium 4.0 (3.5-5.1) mmol/L Chloride 113 H (98-107) mmol/L Carbon Dioxide 21 L (22-30) mmol/L Anion Gap 11.0 (5-15) MEQ/L BUN 14 (7-17) mg/dL Creatinine 0.85 (0.52-1.04) mg/dL Estimated GFR 73.2 ML/MIN Glucose 107 H (74-106) mg/dL Lactic Acid 1.0 (0.4-2.0) Calcium 8.9 (8.4-10.2) mg/dL Total Bilirubin 0.40 (0.2-1.3) mg/dL AST 24 (14-36) U/L ALT 16 (0-35) U/L Alkaline Phosphatase 60 (38-126) U/L Serum Total Protein 6.7 (6.3-8.2) g/dL Albumin 4.0 (3.5-5.0) g/dL Lipase 58 (23-300) U/L Urine Color Yellow (Yellow) Urine Appearance Clear (Clear) Urine pH 5.5 (4.6-8.0) Ur Specific [place] >=1.030 A (1.005-1.030) Urine Protein Negative (Negative) Urine Glucose (UA) Negative (Negative) mg/dL Urine Ketones Negative (Negative) Urine Blood Negative (Negative) Urine Nitrite Negative (Negative) Urine Bilirubin Negative (Negative) Urine Urobilinogen 0.2 (0.2) mg/dL Ur Leukocyte Esterase Negative (Negative) Urine Microscopic RBC 0-2 (0-5) /HPF Urine Microscopic WBC 0-2 (0-5) /HPF Ur Epithelial Cells None Seen (None Seen) /HPF Urine Bacteria None Seen (None Seen) /HPF Urine Culture Reflexed NO (NO) 04/11/23 Range/Units 06:23 WBC 4.9 (4.0-10.5) x10^3/uL RBC 4.15 (4.1-5.4) x10^6/uL Hgb 12.5 (12.0-16.0) g/dL Hct 39.4 (35-47) % MCV 94.9 (78-100) fL MCH 30.1 (26-32) pg MCHC 31.7 L (32-36) g/dL RDW 13.1 (11.5-14.0) % Plt Count 214 (150-450) x10^3/uL MPV 9.5 (7.5-11.0) fL Gran % 45.9 (36.0-66.0) % Immature Gran % (Auto) 0.4 (0.00-0.4) % Nucleat RBC Rel Count 0.0 (0.00-0.1) % Eos # (Auto) 0.18 (0-0.5) x10^3/uL Immature Gran # (Auto) 0.02 (0.00-0.03) x10^3u/L Absolute Lymphs (auto) 2.03 (1.0-4.6) x10^3/uL Absolute Monos (auto) 0.37 (0.0-1.3) x10^3/uL Absolute Nucleated RBC 0.00 (0.00-0.01) x10^3u/L Lymphocytes % 41.8 (24.0-44.0) % Monocytes % 7.6 (0.0-12.0) % Eosinophils % 3.7 (0.00-5.0) % Basophils % 0.6 (0.0-0.4) % Absolute Granulocytes 2.23 (1.4-6.9) x10^3/uL Basophils # 0.03 (0-0.4) x10^3/uL Sodium (137-145) mmol/L Potassium (3.5-5.1) mmol/L Chloride (98-107) mmol/L Carbon Dioxide (22-30) mmol/L Anion Gap (5-15) MEQ/L BUN (7-17) mg/dL Creatinine (0.52-1.04) mg/dL Estimated GFR ML/MIN Glucose (74-106) mg/dL Lactic Acid (0.4-2.0) Calcium (8.4-10.2) mg/dL Total Bilirubin (0.2-1.3) mg/dL AST (14-36) U/L ALT (0-35) U/L Alkaline Phosphatase (38-126) U/L Serum Total Protein (6.3-8.2) g/dL Albumin (3.5-5.0) g/dL Lipase (23-300) U/L Urine Color (Yellow) Urine Appearance (Clear) Urine pH (4.6-8.0) Ur Specific [place] (1.005-1.030) Urine Protein (Negative) Urine Glucose (UA) (Negative) mg/dL Urine Ketones (Negative) Urine Blood (Negative) Urine Nitrite (Negative) Urine Bilirubin (Negative) Urine Urobilinogen (0.2) mg/dL Ur Leukocyte Esterase (Negative) Urine Microscopic RBC (0-5) /HPF Urine Microscopic WBC (0-5) /HPF Ur Epithelial Cells (None Seen) /HPF Urine Bacteria (None Seen) /HPF Urine Culture Reflexed (NO) <DINESH FONTANA - Last Filed: 04/11/23 06:18> - Progress Counseled pt/family regarding: lab results, diagnosis, need for follow-up, rad results <PHILLY CARVAJAL - Last Filed: 04/11/23 08:07> - Progress Progress Note: 04/11/23 06:52 73-year-old female with history of hypertension, hyperlipidemia, diabetes sultana itus presented in the ER with chief complaint of bilateral flank pain/back pain. Patient reported having this pain off and on for quite some time but lately getting worse. Described this as a constant dull ache, spasms which wraps around both side of upper abdomen with associated nausea but no vomiting. Denies any midline back pain but does have history of compression fracture surgery without any fall after surgery. Patient denies any radiation of pain to lower extremities/saddle anesthesia, loss of bowel or bladder control. No numbness or weakness of lower extremities. She has no obvious midline tenderness. She has tenderness in the right lumbar paraspinal area and right flank. Negative neuro exam in lower extremities. No cauda equina symptoms. She is given symptomatic treatment for pain and will obtain acute abdomen workup including CT abdomen pelvis. Workup with pelvic, care is transferred to Dr. Carvajal at change of shift for reevaluation and final disposition. (DINESH FONTANA) 04/11/23 07:[address] scan of the abdomen pelvis was interpreted by the radiologist and I reviewed the impression. There is mild left-sided pleural effusion with passive subsegmental atelectasis of the left lower lung lobe. This is unchanged when compared to prior CT scan. There is stable subcentimeter size exophytic cyst left kidney. Stable exophytic soft tissue density lesion of 4 cm size of the uterus. It extended to the left. There is evidence of sigmoid diverticulosis. (PHILLY CARVAJAL) Medical Desision Making - Independent Historian Additional History obtained from: Family - Diagnostic Testing Diagnostic test were ordered, analyzed, and reviewed by me: Yes Radiological Interpretation: Reviewed by me, Teleradiologist Report - Risk of complications Low Risk: Low risk of morbidity from additional dx testing or treatment <PHILLY CARVAJAL - Last Filed: 04/11/23 08:07> <DINESH FONTANA - Last Filed: 04/11/23 06:18> - Departure Departure Disposition: Home Critical Care Time: No <PHILLY CARVAJAL - Last Filed: 04/11/23 08:07> - Departure Clinical Impression: Pleural effusion, left, Cyst of left kidney, Mass of uterus, Sigmoid diverticulosis Condition: Stable Referrals: KRISHNA GARCIA NP [Primary Care Provider] - Follow up/PCP as directed Additional Instructions: Call your primary care provider today, to make a follow-up appointment for further evaluation management.
[2023-04-11 06:32] LABS: Absolute Neutrophil Ct (ANC) 2.23 x10^3/uL (1.4-6.9); BASOPHIL % 0.6 % (0.0-0.4); Basophil (Absolute #) 0.03 x10^3/uL (0-0.4); Eosinophil % 3.7 % (0.00-5.0); Eosinophil (Absolute #) 0.18 x10^3/uL (0-0.5); Hematocrit 39.4 % (35-47); Hemoglobin 12.5 g/dL (12.0-16.0); IMMATURE GRAN # 0.02 x10^3u/L (0.00-0.03); IMMATURE GRAN % 0.4 % (0.00-0.4); Lymphocyte (Absolute #) 2.03 x10^3/uL (1.0-4.6); Lymphocytes % 41.8 % (24.0-44.0); Mean Cell Volume 94.9 fL (78-100); Mean Corpuscular Hemoglobin 30.1 pg (26-32); Mean Corpuscular Hgb Concent. 31.7 g/dL (32-36); Mean Platelet Volume 9.5 fL (7.5-11.0); Monocyte (Absolute #) 0.37 x10^3/uL (0.0-1.3); Monocytes % 7.6 % (0.0-12.0); Neutrophil % 45.9 % (36.0-66.0); Platelet Count 214 x10^3/uL (150-450); Red Blood Count 4.15 x10^6/uL (4.1-5.4); Red Cell Distribution Width 13.1 % (11.5-14.0); White Blood Count 4.9 x10^3/uL (4.0-10.5)
[2023-04-11 07:02] VITALS: RESP 20
[2023-04-11 07:05] LABS: BILIRUBIN,TOTAL 0.4 mg/dL (0.2-1.3); Calcium 8.9 mg/dL (8.4-10.2); Creatinine 1 0.85 mg/dL (0.52-1.04); EST GLOMERULAR FILTRATION RATE 73.2 ML/MIN; Total Protein 6.7 g/dL (6.3-8.2)
--- NOTE | 2023-04-11 07:11 | XRAY ---
CLINICAL HISTORY:flankpain COMPARISON:02/13/2023 00:05:01 PARTS MANAGER TECHNIQUE:contiguous axial images were obtained from the level of the diaphragm to the pubic symphysis without and with intravenous contrast . Coronal and sagittal reconstructions were likewise performed and indicated to increase the sensitivity for detecting clinically relevant pathology. If IV contrast material had not been administered, the likelihood of detecting abnormalities relevant to the patient's condition would have been substantially decreased. CT scan was performed according to ALARA (as low as reasonable achievable). ? FINDINGS: Mild left-sided pleural effusion with passive subsegmental atelectasis of left lower lobe is seen. Few linear atelectasis are noted involving right lower lobe as well. Few subcentimeter size exophytic cyst are noted arising from left kidney.- Largest measures about 12 x 4 mm. Large exophytic soft tissue density lesion (similar density to uterus) of size 4 cm is noted in relation to the uterus extending left parametrium-suggest possibility of uterine fibroid. Few uncomplicated small sigmoid diverticulosis. The liver is normal in size and attenuation. No focal liver lesions are seen. There is no intra or extrahepatic biliary ductal dilatation. Hepatic vasculature is patent. The gallbladder is present. The spleen, pancreas, and adrenal glands are unremarkable. The kidneys are normal in size and attenuation. There is no hydronephrosis or perinephric fat stranding. No renal calculi or renal masses are identified. The ureters are normal in caliber and no ureteral calculi are seen. The bladder is normal in contour. Pelvic viscera are unremarkable. No focal or diffuse bowel wall thickening or evidence of bowel obstruction is identified. Abdominal and pelvic vasculature is patent. No adenopathy or fluid collections are seen. No aggressive appearing osseous lesions are identified. IMPRESSION: 1. Mild left-sided pleural effusion with passive subsegmental atelectasis of left lower lobe .-same as previous 2. stable subcentimeter size exophytic cyst are noted arising from left kidney.- Largest measures about 12 x 4 mm. 3. stable exophytic soft tissue density lesion (similar density to uterus) of size 4 cm is noted in relation to the uterus extending left parametrium-suggest possibility of uterine fibroid. 4. Few uncomplicated small sigmoid diverticulosis - same as previous. 5. No new acute interval intra-abdominal findings noted. Electronically Signed by: Dr. Keo Smith MD. (04/11/2023 07:07:54 EST)
[2023-04-11 07:54] VITALS: PULSE 82
[2023-04-11 08:03] VITALS: BP 187/99; O2SAT 95
[2023-04-11 08:03] LABS: Appearance Clear (Clear); Bilirubin Negative (Negative); Blood Negative (Negative); Glucose, Urine Negative (Negative); Ketones Negative (Negative); Leukocyte Esterase Negative (Negative); Nitrite Negative (Negative); Ph 5.5 (4.6-8.0); Protein,Urine Dip Negative (Negative); Specific Gravity >=1.030 (1.005-1.030); Urobilinogen 0.2 mg/dL (0.2)
[2023-04-11 08:04] LABS: ADD URINE CULTURE? NO (NO); Bacteria None Seen /HPF (None Seen); Epithelial Cells None Seen /HPF (None Seen); RBC 0-2 /HPF (0-5); WBC 0-2 /HPF (0-5)
== END 2023-04-11 08:19 | disposition home or self-care (01) ==
LOC: ED 05:17
DX: J90 Pleural effusion, not elsewhere classified (principal); N28.1 Cyst of kidney, acquired; N85.8 Other specified noninflammatory disorders of uterus; K57.30 Diverticulosis of large intestine without perforation or abscess without bleeding; R10.9 Unspecified abdominal pain; M54.9 Dorsalgia, unspecified; R11.0 Nausea; I10 Essential (primary) hypertension; E78.5 Hyperlipidemia, unspecified; E11.9 Type 2 diabetes mellitus without complications; Z79.84 Long term (current) use of oral hypoglycemic drugs; Z79.899 Other long term (current) drug therapy; Z28.310 Unvaccinated for COVID-19
CPT/HCPCS: 36000; 36415; 74176; 80053; 81001; 83605; 83690; 85025; 96374; 96375; 99284; J2270; J2405

== ENCOUNTER 2023-10-16 11:18 | Emergency (ER) | payer MEDICARE ==
[2023-10-16 11:24] VITALS: RESP 20; TEMP 98.2; O2SAT 98
[2023-10-16 12:01] VITALS: PULSE 88
--- NOTE | 2023-10-16 12:08 | XRAY ---
Indication: Pain following fall. Comparison: None 3 view left ankle demonstrates osteopenia, mild talotibial degenerative changes, 6 mm posterior calcaneal bone island, and small posterior/plantar heel spurs. No other bony, articular, or soft tissue abnormalities.
--- NOTE | 2023-10-16 12:10 | XRAY ---
Indication: Pain following fall. Comparison: None 3 nonweightbearing views left foot demonstrates 3rd/4th nondisplaced metatarsal head fractures, nondisplaced fracture base 1st metatarsal, and forefoot soft tissue swelling. Elsewhere osteopenia, mild 1st MTP degenerative changes, 6 mm posterior calcaneal bone island, and small heel spurs.
--- NOTE | 2023-10-16 12:29 | ERPHSYRPT ---
- History of Present Illness Time Seen by Provider: 10/16/23 12:18 Source: patient Exam Limitations: no limitations Patient Subjective Stated Complaint: Pt states "I missed a step and hurt my ankle." Triage Nursing Assessment: Pt presented alert and oirneted x 3, skin wpd. PT has left ankle splinted with csm x 4. Physician History: The patient presents with foot pain after a fall. They deny any prior injury to the foot, but report having had previous trouble with it. She has significant pain with weight bearing. Large amount of bruising and swelling of the foot. Method of Injury: fell, twisted Occurred: this morning Quality: constant, throbbing Severity of Pain-Max: severe Severity of Pain-Current: severe Lower Extremities Pain: foot: left Modifying Factors: Worsens With: movement Associated Symptoms: unable to bear weight Allergies/Adverse Reactions: No Known Drug Allergies Allergy (Verified 04/11/23 05:26) Home Medications: Atorvastatin Calcium 1 tab PO DAILY 07/28/21 [History] Lisinopril 20 mg [Zestril 20 MG] 1 tab PO HS 07/28/21 [History] Losartan Potassium 50 mg [Cozaar 50 MG] 2 tab PO DAILY 12/31/21 [History] Pioglitazone 30 mg [Actos 30 MG] 30 mg PO DAILY 12/31/21 [History] Duloxetine HCl 30 mg [Cymbalta 30 MG Capsule] 1 tab PO HS 07/27/22 [History] Ropinirole HCl 1 tab PO HS 07/27/22 [History] Alendronate Sodium 70 mg [Fosamax 70 MG] 70 mg PO WEEKLY 02/13/23 [History] Meclizine HCl 25 mg [Antivert 25 mg] 25 mg PO HS 02/13/23 [History] Hx Tetanus, Diphtheria Vaccination/Date Given: No Hx Influenza Vaccination/Date Given: No Hx Pneumococcal Vaccination/Date Given: No Immunizations Up to Date: No Travel Risk - International Travel Have you traveled outside of the country in past 3 weeks: No - Emerging Infectious Disease Are you exhibiting symptoms associated with any current EIDs: No - Review of Systems All Other Systems: Reviewed and Negative - Past Medical History Pertinent Past Medical History: Yes Neurological History: Other ENT History: No Pertinent History Cardiac History: High Cholesterol, Hypertension Respiratory History: No Pertinent History Endocrine Medical History: Diabetes Type II Musculoskeletal History: Fractures GI Medical History: No Pertinent History History: No Pertinent History Psycho-Social History: Depression Female Reproductive Disorders: No Pertinent History Other Medical History: compression fracture. vertigo. 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 compression fracture repair. mass removed left side with 5th and 6th rib removed. - Social History Smoking Status: Never smoker Exposure to second hand smoke: No Drug Use: none Patient Lives Alone: Yes - Social Determinants of Health Will the patient participate in the screening: Declined to provide - Nursing Vital Signs Nursing Vital Signs: Initial Vital Signs Temperature 98.2 F 10/16/23 11:19 Pulse Rate 100 H 10/16/23 11:19 Respiratory Rate 20 10/16/23 11:19 Blood Pressure 244/111 10/16/23 11:19 O2 Sat by Pulse Oximetry 98 10/16/23 11:19 Pain Scale Pain Intensity 6 - Physical Exam SpO2: 98 Comments: Left foot Inspection: + swelling + forefoot TTP ROM limited by pain Generalized ligamentous laxity: none Anterior Drawer: - Talar Tilt: - Kleiger's Test (ER): - Squeeze: - Heel Thump: - Sensation: subjective normal distal sensation Vasculature: <2 second distal capillary refill LE Skin: no redness, no warmth, + ecchymosis, no rash - Course Nursing assessment & vital signs reviewed: Yes - Radiology Exams Left Foot X-ray Interpretation: Reviewed by me, Teleradiologist Report, Non-displaced Fracture (3rd/4th non displaced metatarsal head fracture, nondisplaced fracture base of 1st metatarsal) Ordered Tests: Active Orders 24 hr Category Date Time Status ANKLE (3 VIEWS) Stat Exams 10/16/23 11:36 Completed FOOT (MINIMUM 3 VIEWS) Stat Exams 10/16/23 11:36 Completed Medication Summary Discontinued Medications Generic Name Dose Route Start Last Admin Trade Name Freq PRN Reason Stop Dose Admin Ketorolac Tromethamine 10 mg 10/16/23 12:45 10/16/23 12:51 Ketorolac Tromethamine 10 Mg Tablet PO 10/16/23 12:46 10 mg ONCE ONE Administration - Progress Progress: unchanged Progress Note: Patient to be placed in post op shoe and made NWB with crutches. Dr. Aparicio will see the patient at 2pm today. Counseled pt/family regarding: need for follow-up, rad results Medical Desision Making - Diagnostic Testing Diagnostic test were ordered, analyzed, and reviewed by me: Yes Radiological Interpretation: Reviewed by me, Teleradiologist Report - Risk of complications Low Risk: Low risk of morbidity from additional dx testing or treatment - Departure Departure Disposition: Home Clinical Impression: Metatarsal fracture, Multiple fractures Condition: Good Critical Care Time: No Referrals: KRISHNA GARCIA, RENDERER [Primary Care Provider] - Follow up/PCP as directed KAILA RAMIREZ DPM [ACTIVE STAFF] - [facility] M-F [id number] (1-2 days) Instructions: Toe Fracture ED Prescriptions: Diclofenac Sodium 75 mg PO BID PRN 30 Days #60 PRN Reason: Pain Tramadol HCl 50 mg [Ultram 50 mg] 50 mg PO TID PRN 3 Days #9 tablet PRN Reason: Pain
[2023-10-16] MEDS: TORAdol 10 MG TABLET PO ONE (12:51)
[2023-10-16 12:56] VITALS: BP 188/100
== END 2023-10-16 12:56 | disposition home or self-care (01) ==
LOC: ED 11:18
DX: S92.335A Nondisplaced fracture of third metatarsal bone, left foot, initial encounter for closed fracture (principal); S92.345A Nondisplaced fracture of fourth metatarsal bone, left foot, initial encounter for closed fracture; S92.315A Nondisplaced fracture of first metatarsal bone, left foot, initial encounter for closed fracture; W19.XXXA Unspecified fall, initial encounter; E78.5 Hyperlipidemia, unspecified; I10 Essential (primary) hypertension; E11.9 Type 2 diabetes mellitus without complications; Z79.84 Long term (current) use of oral hypoglycemic drugs; Z79.891 Long term (current) use of opiate analgesic; Z79.899 Other long term (current) drug therapy
CPT/HCPCS: 73610; 73630; 99283; A9270-GY

== ENCOUNTER 2024-06-01 13:39 | Emergency (ER) | payer MEDICARE, OTHER ==
[2024-06-01 13:44] VITALS: TEMP 97.2
[2024-06-01 15:04] LABS: INFLUENZA A NEGATIVE (NEGATIVE); INFLUENZA B NEGATIVE (NEGATIVE); RESPIRATORY SYNCTIAL VIRUS NEGATIVE (NEGATIVE); SARS-CoV-2 Xpert Express NEGATIVE (NEGATIVE)
--- NOTE | 2024-06-01 15:58 | ERPHSYRPT ---
- History of Present Illness Time Seen by Provider: 06/01/24 13:42 Source: patient, EMS Exam Limitations: no limitations Patient Subjective Stated Complaint: pt here sudden onset of sob today while eating lunch, was given a treatment per ems and states she feels better. Triage Nursing Assessment: pt alert,and oriented, resp easy, occ cough, chest clear, moves all ext well. Physician History: 74 years old female with history of hypertension, hyperlipidemia, diabetes mellitus is brought in the ER by EMS with sudden onset shortness of breath after she had a coughing spell. Patient reports she wanted to cough up some phlegm which was not coming out. Later on she started to feel short of breath. She was given a neb treatment in route and currently she has no difficulty breathing. Patient reports mild sinus/nasal congestion. Patient reports she gets very anxious and her heart rate goes up whenever she is in the ER without her sister. She denies any chest pain or palpitation, no fever or chills reported. No known sick contact. Patient wanted to leave immediately. She does not want any kind of workup done. After prolonged discussion she agreed to get COVID test and chest x-ray. Lungs fairly clear to auscultation, chest x-ray negative for any acute cardiopulmonary findings reviewed by me, official report is pending. Does not want an EKG done. I have obtained COVID flu and RSV which are negative as well. Patient is room air oxygen saturation in mid 90s, no tachypnea. Stable for discharge. Recommended outpatient follow-up. Discussed signs symptoms of worsening needing return to ER which she seems understanding. Stable for discharge. Allergies/Adverse Reactions: No Known Drug Allergies Allergy (Verified 06/01/24 13:42) Home Medications: Atorvastatin Calcium 1 tab PO DAILY 07/28/21 [History] Lisinopril 20 mg [Zestril 20 MG] 1 tab PO HS 07/28/21 [History] Losartan Potassium 50 mg [Cozaar 50 MG] 2 tab PO DAILY 12/31/21 [History] Pioglitazone 30 mg [Actos 30 MG] 30 mg PO DAILY 12/31/21 [History] Duloxetine HCl 30 mg [Cymbalta 30 MG Capsule] 1 tab PO HS 07/27/22 [History] Ropinirole HCl 1 tab PO HS 07/27/22 [History] Alendronate Sodium 70 mg [Fosamax 70 MG] 70 mg PO WEEKLY 02/13/23 [History] Meclizine HCl 25 mg [Antivert 25 mg] 25 mg PO HS 02/13/23 [History] Hx Tetanus, Diphtheria Vaccination/Date Given: No Hx Influenza Vaccination/Date Given: No Hx Pneumococcal Vaccination/Date Given: No Immunizations Up to Date: Yes Travel Risk - International Travel Have you traveled outside of the country in past 3 weeks: No - Emerging Infectious Disease Are you exhibiting symptoms associated with any current EIDs: Yes Symptoms: Cough: New Onset - Review of Systems Constitutional: No Symptoms Ears, Nose, & Throat: Nose Congestion Respiratory: Cough, Dyspnea Cardiac: No Symptoms Abdominal/Gastrointestinal: No Symptoms Genitourinary Symptoms: No Symptoms Neurological: No Symptoms Psychological: Anxiety Endocrine: No Symptoms Hematologic/Lymphatic: No Symptoms - Past Medical History Pertinent Past Medical History: Yes Neurological History: Other ENT History: No Pertinent History Cardiac History: High Cholesterol, Hypertension Respiratory History: No Pertinent History Endocrine Medical History: Diabetes Type II Musculoskeletal History: Fractures GI Medical History: No Pertinent History History: No Pertinent History Psycho-Social History: Depression Female Reproductive Disorders: No Pertinent History Other Medical History: compression fracture. vertigo. 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 compression fracture repair. mass removed left side with 5th and 6th rib removed. - Social History Smoking Status: Never smoker Exposure to second hand smoke: No Drug Use: none - Social Determinants of Health Will the patient participate in the screening: Declined to provide - Nursing Vital Signs Nursing Vital Signs: Initial Vital Signs Temperature 97.2 F 06/01/24 13:43 Pulse Rate 130 H 06/01/24 13:43 Respiratory Rate 20 06/01/24 13:43 Blood Pressure 170/92 06/01/24 13:43 O2 Sat by Pulse Oximetry 96 06/01/24 13:43 Pain Scale Pain Intensity 0 - Physical Exam General Appearance: no apparent distress, alert, anxiety Eye Exam: PERRL/EOMI Ears, Nose, Throat Exam: moist mucous membranes, pharyngeal erythema Neck Exam: normal inspection, non-tender, supple, full range of motion Respiratory Exam: normal breath sounds, lungs clear Cardiovascular Exam: normal heart sounds, tachycardia Gastrointestinal/Abdomen Exam: soft, normal bowel sounds, tenderness Back Exam: normal inspection, normal range of motion Extremity Exam: normal inspection, normal range of motion Neurologic Exam: alert, oriented x 3, cooperative, 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 Skin Exam: normal color SpO2 Interpretation: normal SpO2: 95 O2 Delivery: Room Air Ordered Tests: Active Orders 24 hr Category Date Time Status CHEST 1 VIEW (PORTABLE) Stat Exams 06/01/24 14:06 Taken Lab/Rad Data: Laboratory Results 06/01/24 Range/Units 14:25 Influenza Type A Ag NEGATIVE (NEGATIVE) Influenza Type B Ag NEGATIVE (NEGATIVE) RSV (PCR) NEGATIVE (NEGATIVE) SARS-CoV-2 (PCR) NEGATIVE (NEGATIVE) - Progress Progress: improved, re-examined Air Movement: good Progress Note: 06/01/24 15:56 74 years old female with history of hypertension, hyperlipidemia, diabetes mellitus is brought in the ER by EMS with sudden onset shortness of breath after she had a coughing spell. Patient reports she wanted to cough up some phlegm which was not coming out. Later on she started to feel short of breath. She was given a neb treatment in route and currently she has no difficulty breathing. Reports mild nasal/sinus congestion. Patient reports she gets very anxious and her heart rate goes up whenever she is in the ER without her sister. She denies any chest pain or palpitation, no fever or chills reported. No known sick contact. Patient wanted to leave immediately. She does not want any kind of workup done. After prolonged discussion she agreed to get COVID test and chest x-ray. Lungs fairly clear to auscultation, chest x-ray negative for any acute cardio pulmonary findings reviewed by me, official report is pending. Does not want an EKG done. I have obtained COVID flu and RSV which are negative as well. Heart rate improved from 130s to low 90s. Patient is room air oxygen saturation in mid 90s, no tachypnea. Stable for discharge. Recommended outpatient follow-up. Discussed signs symptoms of worsening needing return to ER which she seems understanding. Stable for discharge. Blood Culture(s) Obtained: No Antibiotics given: No Counseled pt/family regarding: lab results, diagnosis, need for follow-up, rad results Medical Desision Making - Diagnostic Testing Diagnostic test were ordered, analyzed, and reviewed by me: Yes Radiological Interpretation: Interpreted by me, Reviewed by me - Departure Departure Disposition: Home Clinical Impression: URI with cough and congestion Condition: Stable Critical Care Time: No Referrals: KRISHNA GARCIA NP [Primary Care Provider] - Follow up with PCP 1 day Instructions: Cough in adults - ED discharge instructions Additional Instructions: Use inhaler as needed. Follow-up with primary care for reevaluation. Return to ER for any worsening. Prescriptions: Albuterol Sulfate [Albuterol Sulfate Hfa] 8.5 gm IH Q6H PRN 7 Days #1 inh PRN Reason: Cough
[2024-06-01 16:22] VITALS: BP 174/98; PULSE 98; RESP 18; O2SAT 98
--- NOTE | 2024-06-01 23:41 | XRAY ---
Indication: Cough. Comparison: May 16, 2022 Portable chest again demonstrates mild left base infiltrate/atelectasis/effusion but much less than before. Remaining heart and lungs unremarkable. Bony thorax intact again with osteopenia and mild degenerative changes. Interval T10/T11 vertebroplasty.
== END 2024-06-01 16:20 | disposition home or self-care (01) ==
LOC: ED 13:39
DX: J06.9 Acute upper respiratory infection, unspecified (principal); R05.1 Acute cough; R06.02 Shortness of breath; R09.81 Nasal congestion; E78.5 Hyperlipidemia, unspecified; I10 Essential (primary) hypertension; E11.9 Type 2 diabetes mellitus without complications; Z79.84 Long term (current) use of oral hypoglycemic drugs; Z79.899 Other long term (current) drug therapy
CPT/HCPCS: 0241U; 71045; 99284; 99283